=== PATIENT | male | born 1960 | race Caucasian/White ===

== ENCOUNTER 2016-08-09 14:02 | Emergency (ER) | payer OTHER ==
[2016-08-09 14:23] VITALS: TEMP 97.9
--- NOTE | 2016-08-09 15:12 | CT ---
EXAM DESCRIPTION: Head CT without contrast CLINICAL HISTORY: Altered mental status COMPARISON: None. TECHNIQUE: Noncontrast spiral CT of the brain. FINDINGS: No intracranial hemorrhage, infarction or mass lesion. Normal monroe-white matter differentiation Ventricles are normal in size and configuration No calvarial or skullbase fracture. No fluid in the paranasal sinuses or mastoid air cells IMPRESSION: Negative noncontrast head CT Electronically signed by: Duc Grant MD 08/09/2016 3:11 PM JORDAN WORKER
--- NOTE | 2016-08-09 15:13 | RAD ---
EXAM DESCRIPTION: Chest,1 View CLINICAL HISTORY: cardiac workup COMPARISON: 06/23/2013 TECHNIQUE: Single view chest FINDINGS: Heart size is normal. Lungs are clear. No acute osseous injury. IMPRESSION: No acute chest process. Electronically signed by: Duc Grant MD 08/09/2016 3:12 PM SCIENTIFIC DATABASE CURATOR
--- NOTE | 2016-08-09 15:40 | ED.PDOC ---
History of Present Illness - General Chief Complaint: Neuro Symptoms/Deficits Stated Complaint: altered mental status Time Seen by Provider: 08/09/16 14:13 Source: patient, RN notes reviewed, Vital Signs reviewed, EMS notes reviewed Exam Limitations: clinical condition - History of Present Illness Initial Comments: Patient is a 56 y/o male who was brought in by EMS with altered mental status. states that they were taking a nap. When he got up, he was shaking. At that time, he could not answer any of her questons, and he continued shaking. When EMS brought Patient in, he was able to tell me his name. He told me the date was . Several minutes later, after questions were asked and unanswered, Patient blurted out that it was actually the . Allergies/Adverse Reactions: Allergies NO KNOWN ALLERGY Allergy (Verified 08/09/16 14:23) Home Medications: Ambulatory Orders Abilify 03/30/15 Atorvastatin Calcium [Lipitor] 40 mg PO 03/30/15 Esomeprazole Magnesium [Nexium] 20 mg PO 03/30/15 Linagliptin-Metformin HCl [Jentadueto] 1 tab PO 03/30/15 Magnesium Chloride [Slow-Mag] 64 mg PO BID #30 tab 08/09/16 Potassium Chloride [Micro-K] 8 meq PO DAILY #15 cap 08/09/16 Review of Systems - Review of Systems Review of Systems: 08/09/16 17:38 Taken AFTER patient returned to baseline. Past Medical History (General) - Patient Medical History Hx Cardiac Disorders: Yes - SC Hx Hypertension: Yes Hx Diabetes: Yes Hx Gastroesophageal Reflux: Yes Hx MRSA: Yes - Arm 2009; Arm 2011 MRSA Source:: Wound Surgical History: tonsillectomy - Vaccination History Hx Tetanus, Diphtheria Vaccination: No Hx Influenza Vaccination: No Hx Pneumococcal Vaccination: No - Social History Hx Tobacco Use: Yes - quit one week ago Hx Alcohol Use: Yes Hx Substance Use: No Hx Substance Use Treatment: No Hx Depression: No - Activities of Daily Living Hospice Agency (if applicable):: None - Female History Patient is a Female of Child Bearing Age (10 -59 yrs old): No Patient : No Family Medical History - Family History Mother Family History: Unknown Physical Exam - Physical Exam General Appearance: Alert, Anxious, Unkempt Eye Exam: bilateral normal Ears, Nose, Throat: hearing grossly normal, normal ENT inspection Neck: normal inspection Respiratory: lungs clear, normal breath sounds, no respiratory distress, no accessory muscle use Cardiovascular/Chest: regular rate, rhythm, no edema, no gallop, no murmur Gastrointestinal/Abdominal: normal bowel sounds, non tender, soft, no organomegaly Extremity: no pedal edema, no calf tenderness, other - Extremities moving about as if Patient has RLS. Neurologic: abnormal cerebellar tests, abnormal gait, disoriented x 3 - Initially, oriented x 2 (name and date). After resolution of symptoms, oriented x 3. Skin Exam: normal color, warm/dry Progress - Progress Progress: 08/09/16 17:44 By the time Patient's CT results were back, Patient had returned to baseline. Therefore, a neuro consult was not made. Patient's neuro exam returned to normal after he returned to baseline. I discussed observation vs. discharge with Patient and his family, and the decision was to discharge Patient with close follow up since he had returned to baseline. I will order a carotid for Patient to get tomorrow, and he will call his PCPs office and get an appointment for tomorrow. 08/09/16 17:52 - Results/Orders Results/Orders: 08/09/16 08/09/16 08/09/16 14:07 14:45 15:00 Temperature 97.9 F Pulse Rate [ 104 H 72 66 pulse ox] Respiratory 20 20 20 Rate Blood Pressure 172/108 137/72 129/86 [Left Arm] O2 Sat by Pulse 95 99 95 Oximetry 08/09/16 08/09/16 15:47 17:24 Temperature Pulse Rate [ 74 62 pulse ox] Respiratory 20 20 Rate Blood Pressure 133/80 145/76 [Left Arm] O2 Sat by Pulse 94 L 99 Oximetry Laboratory Results WBC 9.7 K/mm3 (4.8-10.8) 08/09/16 13:53 RBC 5.13 M/mm3 (4.70-6.10) 08/09/16 13:53 Hgb 15.3 gm/dL (14.0-18.0) 08/09/16 13:53 Hct 44.1 % (42.0-52.0) 08/09/16 13:53 MCV 86.0 fl (80.0-94.0) 08/09/16 13:53 MCH 29.8 pg (27.0-31.0) 08/09/16 13:53 MCHC 34.6 g/dL (33.0-37.0) 08/09/16 13:53 RDW 13.4 % (11.5-14.5) 08/09/16 13:53 Plt Count 225 K/mm3 (130-400) 08/09/16 13:53 MPV 8.0 fl (7.40-10.4) 08/09/16 13:53 Absolute Neuts (auto) 4.60 K/uL (1.8-6.8) 08/09/16 13:53 Absolute Lymphs (auto) 4.10 K/uL (1.0-3.4) H 08/09/16 13:53 Absolute Monos (auto) 0.60 K/uL (0.2-0.8) 08/09/16 13:53 Absolute Eos (auto) 0.30 K/uL (0.0-0.4) 08/09/16 13:53 Absolute Basos (auto) 0.10 K/uL (0.0-0.1) 08/09/16 13:53 Neutrophils % 47.2 % (42.0-78.0) 08/09/16 13:53 Lymphocytes % 42.7 % (20.0-50.0) 08/09/16 13:53 Monocytes % 6.2 % (2.0-9.0) 08/09/16 13:53 Eosinophils % 3.3 % (1.0-5.0) 08/09/16 13:53 Basophils % 0.6 % (0.0-2.0) 08/09/16 13:53 PT 10.9 SECONDS (9.4-12.5) 08/09/16 13:53 INR 0.960 08/09/16 13:53 PTT (SP) 32.6 SECONDS (25.1-36.5) 08/09/16 13:53 Sodium 140 mmol/L (135-145) 08/09/16 13:53 Potassium 3.2 mmol/L (3.6-5.0) L 08/09/16 13:53 Chloride 101 mmol/L (101-111) 08/09/16 13:53 Carbon Dioxide 30 mmol/L (21-31) 08/09/16 13:53 Anion Gap 12.2 (12-18) 08/09/16 13:53 BUN 26 mg/dL (7-18) H 08/09/16 13:53 Creatinine 0.62 mg/dL (0.6-1.3) 08/09/16 13:53 BUN/Creatinine Ratio 41.9 (10-20) H 08/09/16 13:53 Random Glucose 183 mg/dL (70-105) H 08/09/16 13:53 Serum Osmolality 288.9 mOsm/L (275-295) 08/09/16 13:53 Calcium 9.4 mg/dL (8.4-10.2) 08/09/16 13:53 Magnesium 1.5 mg/dL (1.8-2.5) L 08/09/16 13:53 Creatine Kinase 45 IU/L (38-174) 08/09/16 13:53 CK-MB (CK-2) 0.7 ng/mL (0.0-4.4) 08/09/16 13:53 CK-MB (CK-2) % Not Reportable 08/09/16 13:53 Troponin I < 0.02 ng/mL (0.01-0.05) 08/09/16 13:53 Urine Color Yellow (Yellow) 08/09/16 15:23 Urine Appearance Clear (Clear) 08/09/16 15:23 Urine pH 6.5 (4.5-7.8) 08/09/16 15:23 Ur Specific [place] 1.015 (1.005-1.030) 08/09/16 15:23 Urine Protein Negative mg/dL 08/09/16 15:23 Urine Glucose (UA) 250 mg/dL (Negative) H 08/09/16 15:23 Urine Ketones Negative mg/dL (NEGATIVE) 08/09/16 15:23 Urine Blood Trace-intact (Negative) H 08/09/16 15:23 Urine Nitrite Negative 08/09/16 15:23 Urine Bilirubin Negative (NEGATIVE) 08/09/16 15:23 Urine Urobilinogen 0.2 mg/dL (0.2-1.0) 08/09/16 15:23 Ur Leukocyte Esterase Negative (Negative) 08/09/16 15:23 Urine RBC 0-1 /hpf 08/09/16 15:23 Urine WBC 0-1 /hpf 08/09/16 15:23 Ur Epithelial Cells 0-1 /hpf 08/09/16 15:23 Urine Bacteria 0 08/09/16 15:23 Urine Mucus Moderate 08/09/16 15:23 Urine Opiates Screen Negative ng/mL (2000) 08/09/16 15:23 Urine Barbiturates Negative ng/mL (200) 08/09/16 15:23 Ur Phencyclidine Scrn Negative ng/mL (25) 08/09/16 15:23 U Amphetamin/Meth Scrn Negative ng/mL (1000) 08/09/16 15:23 U Benzodiazepines Scrn Negative ng/mL (200) 08/09/16 15:23 U Cocaine Metab Screen Negative ng/mL (300) 08/09/16 15:23 U Cannabinoids Screen Positive ng/mL (50) H 08/09/16 15:23 - EKG/XRAY/CT XRAY: chest Xray Comments: No acute process CT: Head: No acute process CT Ordered: Yes CT Interpretation Call Back: No - Report sent Departure - Departure Clinical Impression: Transient ischaemic attack (TIA), and cerebral infarction without residual deficits, Hyperglycemia, Hypokalemia, Hypomagnesemia Time of Disposition: 17:54 Disposition: Discharge to Home or Self Care Condition: Good Departure Forms: ED Discharge - Pt. Copy, Patient Portal Self Enrollment Instructions: DI for Transient Ischemic Attack, Transient Ischemic Attack, Hypokalemia, DI for Hypokalemia Diet: diabetic diet Referrals: [Primary Care Provider] - 08/10/16 Prescriptions: Potassium Chloride [Micro-K] 8 meq PO DAILY #15 cap Magnesium Chloride [Slow-Mag] 64 mg PO BID #30 tab Home Medications: Ambulatory Orders Abilify 03/30/15 Atorvastatin Calcium [Lipitor] 40 mg PO 03/30/15 Esomeprazole Magnesium [Nexium] 20 mg PO 03/30/15 Linagliptin-Metformin HCl [Jentadueto] 1 tab PO 03/30/15 Magnesium Chloride [Slow-Mag] 64 mg PO BID #30 tab 08/09/16 Potassium Chloride [Micro-K] 8 meq PO DAILY #15 cap 08/09/16 Additional Instructions: Start aspirin 325 mg daily. Follow up with PCP TOMORROW. Order for carotid doppler for tomorrow. Follow up in ED for any return of symptoms.
[2016-08-09] MEDS ORDERED: ASPIRIN TABLET 325 MG TAB PO ONE (17:37)
[2016-08-09 18:26] VITALS: BP 139/68; O2SAT 96
== END 2016-08-09 18:10 | disposition home or self-care (01) ==
LOC: ER 14:02
DX: G45.9 Transient cerebral ischemic attack, unspecified (principal); E11.65 Type 2 diabetes mellitus with hyperglycemia; E83.42 Hypomagnesemia; I25.2 Old myocardial infarction; I10 Essential (primary) hypertension; K21.9 Gastro-esophageal reflux disease without esophagitis; Z86.14 Personal history of Methicillin resistant Staphylococcus aureus infection; Z87.891 Personal history of nicotine dependence; Z79.899 Other long term (current) drug therapy

== ENCOUNTER → 2016-08-10 | Outpatient (CLI) | payer OTHER ==
--- NOTE | 2016-08-11 08:59 | US ---
EXAM DESCRIPTION: Carotid Duplex CLINICAL HISTORY: 56 years, Male, TIA COMPARISON: [None.] FINDINGS: Peak systolic velocity distal right common carotid artery 89 centimeters/second. Peak systolic velocity right internal carotid artery 66 centimeters/second. Right ICA to CCA ratio 0.7. Antegrade flow in the right vertebral artery. Peak systolic velocity right external carotid artery 118 centimeters/second. Grayscale images show a small amount of noncalcified plaque in the right carotid bifurcation. Peak systolic velocity left common carotid artery 83 centimeters/second. Peak systolic velocity left internal carotid artery 74 centimeters/second. Left ICA to CCA ratio 0.9. [Antegrade] flow in the left vertebral artery. Peak systolic velocity left external carotid artery 108 centimeters/second. Grayscale images show a small amount of noncalcified plaque in the left carotid bifurcation. IMPRESSION: Mild (less than 50%) bilateral carotid artery stenosis. Electronically signed by: Zaid Freedman MD 08/11/2016 8:58 AM SALES REPRESENTATIVE EDUCATION COURSES
== END | disposition home or self-care (01) ==
LOC: US 12:59
PROVIDERS: ATTEND Nurse Practitioner Family
DX: I65.23 Occlusion and stenosis of bilateral carotid arteries (principal)

== ENCOUNTER → 2016-08-26 | Outpatient (CLI) | payer OTHER | END | disposition home or self-care (01) | LOC: YCFC.O 15:37 | PROVIDERS: ATTEND Nurse Practitioner Family | DX: I10 Essential (primary) hypertension (principal) ==

== ENCOUNTER 2016-10-03 16:29 | Emergency (ER) | payer OTHER ==
[2016-10-03 16:47] VITALS: TEMP 98
--- NOTE | 2016-10-03 17:07 | ED.PDOC ---
History of Present Illness - General Chief Complaint: Neuro Symptoms/Deficits Stated Complaint: had dizziness around 1430 btter now Time Seen by Provider: 10/03/16 16:30 Source: patient, RN notes reviewed, Vital Signs reviewed, family, EMS Exam Limitations: no limitations - History of Present Illness Initial Comments: Patient reports that about 14:30 today he got up from sitting outside and got dizzy and felt like he was going to pass out as he walked into the house. He sat on the floor and then felt better. Symptoms only lasted a few minutes. Now is symptoms free. was concerned because he was recently diagnosed with a TIA. He also started new diabetes medication and his BS is running 100-150. Today all he has eaten in 2 handfuls of sunflower seeds and a diet Dr. Banks. Timing/Duration: momentarily Severity: mild Improving Factors: rest Worsening Factors: movement Associated Symptoms: denies symptoms Allergies/Adverse Reactions: Allergies NO KNOWN ALLERGY Allergy (Verified 10/03/16 16:42) Home Medications: Ambulatory Orders Abilify 03/30/15 Atorvastatin Calcium [Lipitor] 40 mg PO 03/30/15 Esomeprazole Magnesium [Nexium] 20 mg PO 03/30/15 Linagliptin-Metformin HCl [Jentadueto] 1 tab PO 03/30/15 Magnesium Chloride [Slow-Mag] 64 mg PO BID #30 tab 08/09/16 Potassium Chloride [Micro-K] 8 meq PO DAILY #15 cap 08/09/16 Review of Systems - Review of Systems Constitutional: States: no symptoms reported EENTM: States: no symptoms reported Respiratory: States: no symptoms reported Cardiology: States: no symptoms reported Gastrointestinal/Abdominal: States: no symptoms reported Musculoskeletal: States: no symptoms reported Neurological: States: see HPI Past Medical History (General) - Patient Medical History Hx Seizures: No Hx Stroke: Yes Hx Dementia: No Hx Asthma: No Hx of COPD: No Hx Cardiac Disorders: No Hx Congestive Heart Failure: No Hx Pacemaker: No Hx Hypertension: Yes Hx Thyroid Disease: No Hx Diabetes: Yes Hx Gastroesophageal Reflux: No Hx Renal Disease: No Hx Cancer: No Hx of HIV: No Hx Hepatitis C: No Hx MRSA: No MRSA Source:: Wound - Vaccination History Hx Tetanus, Diphtheria Vaccination: No Hx Influenza Vaccination: No Hx Pneumococcal Vaccination: No Immunizations Up to Date: No - Social History Hx Tobacco Use: Yes - quit one week ago Hx Chewing Tobacco Use: No Hx Alcohol Use: Yes Hx Substance Use: No Hx Substance Use Treatment: No Hx Depression: No Feels Threatened In Home Enviroment: No Feels Threatened In a Relationship: No Hx Physical Abuse: No Hx Emotional Abuse: No Hx Suspected Abuse: No - Female History Patient is a Female of Child Bearing Age (10 -59 yrs old): No Patient : No Family Medical History - Family History Mother Family History: Unknown Living Status: Physical Exam - Physical Exam General Appearance: Alert, Comfortable, No apparent distress, Unkempt, Well Developed, Well Hydrated, Well Nourished Eye Exam: bilateral normal Ears, Nose, Throat: hearing grossly normal, normal ENT inspection, normal pharynx Neck: non-tender, full range of motion, supple, normal inspection Respiratory: lungs clear, normal breath sounds, no respiratory distress, no accessory muscle use Cardiovascular/Chest: regular rate, rhythm, no edema, no gallop, no JVD, no murmur Gastrointestinal/Abdominal: non tender, soft Extremity: normal range of motion, non-tender, normal inspection Neurologic: exercise science internship II-XII nml as tested, no motor/sensory deficits, alert, normal mood/affect, oriented x 3 Skin Exam: normal color, warm/dry Comments: Vital Signs - 24 hr 10/03/16 16:42 Temperature 98 F Pulse Rate [ 78 Left Apical] Respiratory 20 Rate Blood Pressure 145/87 [Left Arm] O2 Sat by Pulse 100 Oximetry Progress - Progress Progress: 10/03/16 17:09 Patient with completely normal neuro exam. Suspect his symptoms were due to his BS dropping too low. EMS reported BS of 108. Will d/c home Advised to eat more regularly, especially now that he is on medication that is keeping his blood sugar better controlled. Departure - Departure Clinical Impression: Dizziness, nonspecific Time of Disposition: 17:11 Disposition: Discharge to Home or Self Care Condition: Good Departure Forms: ED Discharge - Pt. Copy, Patient Portal Self Enrollment Instructions: DI for Dizziness-Nonvertigo Diet: diabetic diet Activity: increase activity as tolerated Referrals: Gina Lazaro FNP [Primary Care Provider] - 1-2 Weeks Home Medications: Ambulatory Orders Abilify 03/30/15 Atorvastatin Calcium [Lipitor] 40 mg PO 03/30/15 Esomeprazole Magnesium [Nexium] 20 mg PO 03/30/15 Linagliptin-Metformin HCl [Jentadueto] 1 tab PO 03/30/15 Magnesium Chloride [Slow-Mag] 64 mg PO BID #30 tab 08/09/16 Potassium Chloride [Micro-K] 8 meq PO DAILY #15 cap 08/09/16
[2016-10-03 17:22] VITALS: BP 148/87; O2SAT 99
== END 2016-10-03 17:21 | disposition home or self-care (01) ==
LOC: ER 16:29
DX: R42 Dizziness and giddiness (principal); I10 Essential (primary) hypertension; E11.9 Type 2 diabetes mellitus without complications; Z86.73 Personal history of transient ischemic attack (TIA), and cerebral infarction without residual deficits; Z87.891 Personal history of nicotine dependence; Z79.899 Other long term (current) drug therapy

== ENCOUNTER 2016-10-10 20:04 | Emergency (ER) | payer OTHER ==
[2016-10-10] MEDS ORDERED: CHLORHEXIDINE GLUCONATE 4 % 15 ML UD TOP ONE (20:11)
[2016-10-10 20:24] VITALS: TEMP 98.7
--- NOTE | 2016-10-10 20:32 | ED.PDOC ---
History of Present Illness - General Chief Complaint: Laceration Stated Complaint: left index finger laceration Time Seen by Provider: 10/10/16 20:29 Source: patient, RN notes reviewed, Vital Signs reviewed Exam Limitations: no limitations - History of Present Illness Initial Comments: Margy is a 56 y/o male who was trying to put a hole in his belt and the knife slipped and cut his left index finger. This happened about 30 minutes ago. He is experiencing mild pain. The knife was a fairly clean knife-a pocket knife. Timing/Duration: just prior to arrival Severity: mild Location: extremities - Distal left index finger Improving Factors: nothing Worsening Factors: nothing Associated Symptoms: denies symptoms Allergies/Adverse Reactions: Allergies NO KNOWN ALLERGY Allergy (Verified 10/10/16 20:24) Home Medications: Ambulatory Orders Abilify 03/30/15 Atorvastatin Calcium [Lipitor] 40 mg PO 03/30/15 Esomeprazole Magnesium [Nexium] 20 mg PO 03/30/15 Linagliptin-Metformin HCl [Jentadueto] 1 tab PO 03/30/15 Magnesium Chloride [Slow-Mag] 64 mg PO BID #30 tab 08/09/16 Potassium Chloride [Micro-K] 8 meq PO DAILY #15 cap 08/09/16 Review of Systems - Review of Systems Constitutional: States: no symptoms reported EENTM: States: no symptoms reported Respiratory: States: no symptoms reported Cardiology: States: no symptoms reported Gastrointestinal/Abdominal: States: no symptoms reported Genitourinary: States: no symptoms reported Musculoskeletal: States: no symptoms reported Skin: States: other - laceration Neurological: States: no symptoms reported Endocrine: States: no symptoms reported Hematologic/Lymphatic: States: no symptoms reported All other Systems: Reviewed and Negative Past Medical History (General) - Patient Medical History Hx Seizures: No Hx Stroke: Yes Hx Dementia: No Hx Asthma: No Hx of COPD: No Hx Cardiac Disorders: No Hx Congestive Heart Failure: No Hx Pacemaker: No Hx Hypertension: Yes Hx Thyroid Disease: No Hx Diabetes: Yes Hx Gastroesophageal Reflux: No Hx Renal Disease: No Hx Cancer: No Hx of HIV: No Hx Hepatitis C: No Hx MRSA: No MRSA Source:: Wound Surgical History: tonsillectomy - Vaccination History Hx Tetanus, Diphtheria Vaccination: No Hx Influenza Vaccination: No Hx Pneumococcal Vaccination: No Immunizations Up to Date: No - Social History Hx Tobacco Use: Yes - quit one week ago Hx Chewing Tobacco Use: No Hx Alcohol Use: Yes Hx Substance Use: No Hx Substance Use Treatment: No Hx Depression: No Feels Threatened In Home Enviroment: No Feels Threatened In a Relationship: No Hx Physical Abuse: No Hx Emotional Abuse: No Hx Suspected Abuse: No - Female History Patient : No Family Medical History - Family History Mother Family History: Unknown Living Status: Physical Exam - Physical Exam General Appearance: Alert, Comfortable, No apparent distress Eyes, Ears, Nose, Throat Exam: normal ENT inspection Respiratory: no respiratory distress Extremity: normal range of motion Neurologic: alert, normal mood/affect, oriented x 3 Skin Exam: other - Superficial laceration 1.2 cm at distal left index finger. U -shaped. Did catch distal edge of nail. Skin Problem Location: upper extremities Skin Character: other - laceration Procedures - Laceration/Wound Repair Left Finger Wound Length (cm): 1.2 Wound's Depth, Shape: superficial Wound Explored: no foreign body removed Irrigated w/ Saline (cc's): 50 - soaked in hibiclens with saline for 20 minutes Betadine Prep?: No - Hibiclens Wound Repaired With: dermabond Departure - Departure Clinical Impression: Laceration, Immunization, tetanus-diphtheria ICD-10 Supporting Text: 1.2 cm distal left index finger Time of Disposition: 21:07 Disposition: Discharge to Home or Self Care Condition: Fair Departure Forms: ED Discharge - Pt. Copy, Patient Portal Self Enrollment Instructions: DI for Minor Laceration, DI for Laceration Repair With Dermabond Diet: resume usual diet Home Medications: Ambulatory Orders Abilify 03/30/15 Atorvastatin Calcium [Lipitor] 40 mg PO 03/30/15 Esomeprazole Magnesium [Nexium] 20 mg PO 03/30/15 Linagliptin-Metformin HCl [Jentadueto] 1 tab PO 03/30/15 Magnesium Chloride [Slow-Mag] 64 mg PO BID #30 tab 08/09/16 Potassium Chloride [Micro-K] 8 meq PO DAILY #15 cap 08/09/16 Additional Instructions: Follow up for any severe pain or redness to finger.
[2016-10-10] MEDS ORDERED: TETANUS,DIPHTHERIA,PERTUSSIS 1 EA SYG IM ONE (21:08)
[2016-10-10 21:36] VITALS: BP 153/102; O2SAT 97
== END 2016-10-10 21:37 | disposition home or self-care (01) ==
LOC: ER 20:04
DX: S61.211A Laceration without foreign body of left index finger without damage to nail, initial encounter (principal); E11.9 Type 2 diabetes mellitus without complications; I10 Essential (primary) hypertension; Z86.73 Personal history of transient ischemic attack (TIA), and cerebral infarction without residual deficits; Z79.899 Other long term (current) drug therapy; Z23 Encounter for immunization; Z87.891 Personal history of nicotine dependence; W26.0XXA Contact with knife, initial encounter

== ENCOUNTER → 2016-11-29 | Outpatient (CLI) | payer OTHER | END | disposition home or self-care (01) | LOC: YCFC.O 11:08 | PROVIDERS: ATTEND Nurse Practitioner Family | DX: E78.2 Mixed hyperlipidemia (principal); E11.65 Type 2 diabetes mellitus with hyperglycemia; I10 Essential (primary) hypertension ==

== ENCOUNTER 2017-03-28 15:37 | Emergency (ER) | payer OTHER ==
[2017-03-28 16:13] VITALS: TEMP 98.6
--- NOTE | 2017-03-28 16:31 | CT ---
PROCEDURE: Head HISTORY: stroke like symptoms Indication: Same as above Comparison: 08/09/2016 Technique: CT of the head was done without intravenous contrast was done in the orthogonal planes. This exam was performed according to our departmental dose-optimization program, which includes automated exposure control, adjustment of the mA and/or KV according to the patient's size and/or use of iterative reconstruction technique. FINDINGS: There is no intracranial hemorrhage, midline shift mass effect or acute focal infarct. If clinical concern exists regarding an acute ischemic/vascular pathology being responsible for patient's symptomatology, an MRI of the brain is more sensitive than the current study, in ruling out such a possibility. There is good monroe/white matter differentiation. The ventricular system is normal. The mastoid air cells are unremarkable . The paranasal sinuses are unremarkable . There is no visualization of acute fractures involving the calvarium or the skull base. IMPRESSION: There is no acute intracranial abnormality. Electronically signed by: Andre Ahmadi MD 03/28/2017 4:30 PM CDT Workstation: [id number]
--- NOTE | 2017-03-28 16:31 | RAD ---
EXAM DESCRIPTION: Chest,1 View CLINICAL HISTORY: pain COMPARISON: August 01, 2016 IMPRESSION: Single AP portable upright view of the chest shows cardiac silhouette and pulmonary vasculature to be within normal limits. Lungs are normally aerated and clear. No obvious pleural effusion or pneumothorax is seen. Electronically signed by: Jamshid Juarez MD 03/28/2017 4:30 PM CDT
--- NOTE | 2017-03-28 17:11 | ED.PDOC ---
History of Present Illness - General Chief Complaint: Neuro Symptoms/Deficits Stated Complaint: stroke like symptoms Time Seen by Provider: 03/28/17 15:54 Source: patient Exam Limitations: no limitations - History of Present Illness Initial Comments: Nick Calderon 56 y/o female stated that woke up from sleep at about 1500 H this afternoon got up and had jerky movements all over and speech was slurred ,confused and restless,EMS was called and blood sugar checked was 108mg/ dl on finger stick.No nausea vomiting no fever.On arrival was awake ,Quiet just looking all over no agitation.Medical records reviewed showed he had same symptoms in the past previou head ct no infarct/hemorrhage noted and bilateral carotid doppler done has <50% mild stenosis bilaterally noted done 2016.He is dm2,BD,HTN. Timing/Duration: 1-3 hours Severity: moderate Improving Factors: nothing Worsening Factors: nothing Associated Symptoms: denies symptoms Allergies/Adverse Reactions: Allergies NO KNOWN ALLERGY Allergy (Verified 03/28/17 16:13) Home Medications: Ambulatory Orders Abilify 03/30/15 Atorvastatin Calcium [Lipitor] 40 mg PO 03/30/15 Esomeprazole Magnesium [Nexium] 20 mg PO 03/30/15 Linagliptin-Metformin HCl [Jentadueto] 1 tab PO 03/30/15 Magnesium Chloride [Slow-Mag] 64 mg PO BID #30 tab 08/09/16 Potassium Chloride [Micro-K] 8 meq PO DAILY #15 cap 08/09/16 Review of Systems - Review of Systems Constitutional: States: no symptoms reported EENTM: States: no symptoms reported Respiratory: States: no symptoms reported Cardiology: States: no symptoms reported Gastrointestinal/Abdominal: States: no symptoms reported Genitourinary: States: no symptoms reported Musculoskeletal: States: no symptoms reported Neurological: States: see HPI Past Medical History (General) - Patient Medical History Hx Seizures: No Hx Stroke: No - TIA (?) Hx Dementia: No Hx Asthma: No Hx of COPD: No Hx Cardiac Disorders: No Hx Congestive Heart Failure: No Hx Pacemaker: No Hx Hypertension: Yes Hx Thyroid Disease: No Hx Diabetes: Yes Hx Gastroesophageal Reflux: No Hx Renal Disease: No Hx Cancer: No Hx of HIV: No Hx Hepatitis C: No Hx MRSA: No MRSA Source:: Wound Surgical History: tonsillectomy, other - circumcision - Vaccination History Hx Tetanus, Diphtheria Vaccination: No Hx Influenza Vaccination: No Hx Pneumococcal Vaccination: No - Social History Hx Tobacco Use: Yes Hx Chewing Tobacco Use: No Hx Alcohol Use: Yes Hx Substance Use: No Hx Substance Use Treatment: No Hx Depression: No Hx Physical Abuse: No Hx Emotional Abuse: No Hx Suspected Abuse: No - Activities of Daily Living Patient Lives Alone: No - family;medically disabled Hospice Agency (if applicable):: None Grooming Ability: Independent Eating (Feeding) Ability: Independent Toileting Ability: Independent - Female History Patient : No Family Medical History - Family History Mother Family History: Unknown Living Status: Hx Family Diabetes: Yes - mom-brother Hx Family Cancer: Yes - dad-lung Hx Family;Other: SEIZURES-brother Physical Exam - Physical Exam General Appearance: Alert, Comfortable, No apparent distress Eye Exam: bilateral normal Ears, Nose, Throat: hearing grossly normal, normal ENT inspection, normal pharynx Neck: non-tender, full range of motion, supple Respiratory: chest non-tender, lungs clear, normal breath sounds Cardiovascular/Chest: normal peripheral pulses, regular rate, rhythm, no murmur Peripheral Pulses: radial,right: 2+, radial,left: 2+ Gastrointestinal/Abdominal: normal bowel sounds, non tender, soft, no organomegaly Extremity: normal range of motion, non-tender, normal inspection, no pedal edema , no calf tenderness Neurologic: home care giver II-XII nml as tested, no motor/sensory deficits, alert, normal mood/affect, oriented x 3, other - pronator drift negative;speech fluent Skin Exam: normal color, warm/dry Progress - Progress Progress: 03/28/17 17:16 Vital Signs - 8 hr 03/28/17 16:03 Temperature 98.6 F Pulse Rate [ 102 H pulse ox] Respiratory 20 Rate Blood Pressure 157/56 [Right Arm] O2 Sat by Pulse 97 Oximetry - EKG/XRAY/CT EKG: Sinus, nonspecific ST T wave Chg Comments: heart rate-80 XRAY: chest - no acute abnormalities CT Ordered: Yes - head-no acute intracranial abnormalities Departure - Departure Clinical Impression: Hypomagnesemia Altered mental state Qualifiers: Altered mental status type: unspecified Qualified Code(s): R41.82 - Altered mental status, unspecified Diabetes Qualifiers: Diabetes mellitus type: type 2 Diabetes mellitus complication status: without complication Diabetes mellitus custodial insulin use: without heavy equipment plumbing supervisor use Qualified Code(s): E11.9 - Type 2 diabetes mellitus without complications Time of Disposition: 19:15 Disposition: Discharge to Home or Self Care Condition: Fair Departure Forms: ED Discharge - Pt. Copy, Patient Portal Self Enrollment Referrals: Gina Lazaro, BLADE GRADER OPERATOR [Primary Care Provider] - 1-2 Weeks Home Medications: Ambulatory Orders Abilify 03/30/15 Atorvastatin Calcium [Lipitor] 40 mg PO 03/30/15 Esomeprazole Magnesium [Nexium] 20 mg PO 03/30/15 Linagliptin-Metformin HCl [Jentadueto] 1 tab PO 03/30/15 Magnesium Chloride [Slow-Mag] 64 mg PO BID #30 tab 08/09/16 Potassium Chloride [Micro-K] 8 meq PO DAILY #15 cap 08/09/16 Additional Instructions: NEED TO TAKE MAGNESIUM OXIDE 400 mg daily(over the counter ) may get it at [facility];RETURN TO EMERGENCY ROOM NEEDED ;FOLLOW UP WITH PRIMARY MD 03/29 call for appointment for referral to NEUROLOGIST.Continue with all home medications
[2017-03-28] MEDS ORDERED: MAGNESIUM SULFATE PREMIX 2GM 2 GM in PREMIX BAG 1 BAG IVPB ONE (17:38)
[2017-03-28] MEDS ORDERED: MAGNESIUM SULFATE PREMIX 2GM 50 ML IVPB ONE (17:41)
[2017-03-28 19:19] VITALS: O2SAT 96
[2017-03-28 19:39] VITALS: BP 151/80
== END 2017-03-28 19:39 | disposition home or self-care (01) ==
LOC: ER 15:37
DX: E83.42 Hypomagnesemia (principal); R41.82 Altered mental status, unspecified; E11.9 Type 2 diabetes mellitus without complications; I10 Essential (primary) hypertension; Z79.899 Other long term (current) drug therapy
CPT/HCPCS: 36415; 70450; 71010; 80048; 80076; 80307; 80320; 81001; 82550; 82553; 84484; 85025; 85610; 85730; 93005; J3475

== ENCOUNTER 2017-05-27 14:15 | Emergency (ER) | payer OTHER ==
--- NOTE | 2017-05-27 14:22 | ED.PDOC ---
History of Present Illness - General Chief Complaint: Neuro Symptoms/Deficits Stated Complaint: altered mental status Time Seen by Provider: 05/27/17 14:17 Source: EMS Exam Limitations: clinical condition Additional Information: Per EMS Pt had voided on himself. He was aphasic but following commands for the most part. No distress. Per EMS family has been dealing with this for the past few months. Initially patient unable to speak but he was able to follow commands. He had no lateralizing symptoms at that time. Upon reassessment he resolved completely and was requesting to go home. He has a Neurology appointment in July. - History of Present Illness Timing/Duration: 1-3 hours - prior to arrival Improving Factors: rest Associated Symptoms: other - loss of bladder control Allergies/Adverse Reactions: Allergies NO KNOWN ALLERGY Allergy (Verified 03/28/17 16:13) Home Medications: Ambulatory Orders Aripiprazole [Abilify] 10 mg PO DAILY 03/30/15 Atorvastatin Calcium [Lipitor] 40 mg PO BEDTIME 03/30/15 Esomeprazole Magnesium [Nexium] 20 mg PO DAILY 03/30/15 Aspirin (Buffered) 325 mg [Bufferin 325 mg] 1 ea PO DAILY 05/27/17 Linagliptin [Tradjenta] 5 mg PO DAILY 05/27/17 Lisinopril & Hydrochlorothiazi [Zestoretic 20-25 mg] 1 tab PO DAILY 05/27/17 Magnesium Chloride [Slow-Mag] 64 mg PO DAILY 05/27/17 Metformin HCl [Metformin HCl ER] 1,000 mg PO BID 05/27/17 Review of Systems - Review of Systems Constitutional: States: no symptoms reported EENTM: States: no symptoms reported Respiratory: States: no symptoms reported Cardiology: States: no symptoms reported Gastrointestinal/Abdominal: States: no symptoms reported Genitourinary: States: no symptoms reported Musculoskeletal: States: no symptoms reported Skin: States: no symptoms reported Neurological: States: see HPI, seizure - like activity Endocrine: States: see HPI - h/o diabetes Hematologic/Lymphatic: States: no symptoms reported Past Medical History (General) - Patient Medical History Hx Seizures: No Hx Stroke: No - TIA (?) Hx Dementia: No Hx Asthma: No Hx of COPD: No Hx Cardiac Disorders: No Hx Congestive Heart Failure: No Hx Pacemaker: No Hx Hypertension: Yes Hx Thyroid Disease: No Hx Diabetes: Yes Hx Gastroesophageal Reflux: No Hx Renal Disease: No Hx Cancer: No Hx of HIV: No Hx Hepatitis C: No Hx MRSA: No MRSA Source:: Wound - Vaccination History Hx Tetanus, Diphtheria Vaccination: No Hx Influenza Vaccination: No Hx Pneumococcal Vaccination: No - Social History Hx Tobacco Use: Yes Hx Chewing Tobacco Use: No Hx Alcohol Use: Yes Hx Substance Use: No Hx Substance Use Treatment: No Hx Depression: No Hx Physical Abuse: No Hx Emotional Abuse: No Hx Suspected Abuse: No - Female History Patient : No Family Medical History - Family History Mother Family History: Unknown Living Status: Hx Family Diabetes: Yes - mom-brother Hx Family Cancer: Yes - dad-lung Hx Family;Other: SEIZURES-brother Physical Exam - Physical Exam General Appearance: No apparent distress, Unkempt, Other - initially aphasic. Later on, symptoms resolved. Eye Exam: bilateral normal ENT Exam: normal ENT inspection, pharynx normal Neck: non-tender, full range of motion, supple, normal inspection Respiratory: no respiratory distress, no accessory muscle use Cardiovascular/Chest: regular rate, rhythm Gastrointestinal/Abdominal: non tender, soft Extremities Exam: non-tender, normal range of motion Mental Status: other - aphasic initially, then after about 10 to 15 minutes Pt was alert and oriented with normal speech Motor/Sensory: no motor deficit, no sensory deficit, no pronator drift Skin Exam: normal color Progress - Progress Progress: 05/27/17 15:10 Symptoms resolved spontaneously. Similar to previous episode in March 2017. Pt stable. Suspect Pt came in post-ictal state which has resolved. He has an appointment with Neurology in July. - Results/Orders Results/Orders: 05/27/17 14:19 URINE DRUG SCREEN, 7 ASSAY Stat PROLACTIN Stat 05/27/17 14:21 IV Care:Saline Lock per Protoc QSHIFT 05/27/17 14:28 Sodium Chloride 0.9% 1000ML [Ns 1000 ml] 1,000 ml IVS ONCE 05/27/17 14:34 CMP [COMPLETE METABOLIC PROFILE] Stat TSH [THYROID STIMULATING HORMONE] Stat Laboratory Results - last 24 hr 05/27/17 05/27/17 05/27/17 14:34 14:34 14:50 WBC 8.1 RBC 4.91 Hgb 14.7 Hct 41.4 L MCV 84.2 MCH 30.0 MCHC 35.6 RDW 12.7 Plt Count 238 MPV 7.7 Absolute Neuts (auto) 4.80 Absolute Lymphs (auto) 2.50 Absolute Monos (auto) 0.60 Absolute Eos (auto) 0.20 Absolute Basos (auto) 0.10 Neutrophils % 58.7 Lymphocytes % 31.4 Monocytes % 7.2 Eosinophils % 2.0 Basophils % 0.7 Sodium 138 Potassium 3.9 Chloride 99 L Carbon Dioxide 30 Anion Gap 12.9 BUN 14 Creatinine 0.75 BUN/Creatinine Ratio 18.7 Random Glucose 250 H Serum Osmolality 284.6 Calcium 9.4 Total Bilirubin 0.3 AST 17 ALT 20 Alkaline Phosphatase 96 Serum Total Protein 7.1 Albumin 3.8 Globulin 3.3 Albumin/Globulin Ratio 1.2 Urine Color Yellow Urine Appearance Cloudy Urine pH 7.5 Ur Specific [place] 1.020 Urine Protein Negative Urine Glucose (UA) 500 H Urine Ketones Negative Urine Blood Negative Urine Nitrite Negative Urine Bilirubin Negative Urine Urobilinogen 0.2 Ur Leukocyte Esterase Negative Urine RBC 0 Urine WBC 0 Ur Epithelial Cells 10-20 Amorphous Sediment 2+ Urine Bacteria 0 - EKG/XRAY/CT CT: Head Noncontrast - no acute changes. No bleed. No mass effect. Departure - Departure Clinical Impression: Seizure-like activity Mental status alteration Qualifiers: Altered mental status type: transient alteration of awareness Qualified Code(s) : R40.4 - Transient alteration of awareness Uncontrolled diabetes mellitus Qualifiers: Diabetes mellitus type: type 2 Diabetes mellitus complication status: with hyperglycemia Diabetes mellitus outpatient clerk insulin use: without outpatient clerk use Qualified Code(s): E11.65 - Type 2 diabetes mellitus with hyperglycemia Time of Disposition: 15:26 Disposition: Discharge to Home or Self Care Condition: Fair Departure Forms: ED Discharge - Pt. Copy, Patient Portal Self Enrollment Referrals: Gina Lazaro NP [Primary Care Provider] - 1-2 Weeks Home Medications: Ambulatory Orders Aripiprazole [Abilify] 10 mg PO DAILY 03/30/15 Atorvastatin Calcium [Lipitor] 40 mg PO BEDTIME 03/30/15 Esomeprazole Magnesium [Nexium] 20 mg PO DAILY 03/30/15 Aspirin (Buffered) 325 mg [Bufferin 325 mg] 1 ea PO DAILY 05/27/17 Linagliptin [Tradjenta] 5 mg PO DAILY 05/27/17 Lisinopril & Hydrochlorothiazi [Zestoretic 20-25 mg] 1 tab PO DAILY 05/27/17 Magnesium Chloride [Slow-Mag] 64 mg PO DAILY 05/27/17 Metformin HCl [Metformin HCl ER] 1,000 mg PO BID 05/27/17 Additional Instructions: I suspect you had seizure like activity. Keep your appointment with Neurology as scheduled. Return to ER if altered mental status recurs. Keep up to date with your Diabetes management and surveillance (ex- Hemoglobin A1C every 3 to 4 months).
[2017-05-27 14:27] VITALS: TEMP 98.7
[2017-05-27] MEDS ORDERED: SODIUM CHLORIDE 0.9% 1000ML 1,000 ML IVS ONE (14:28)
--- NOTE | 2017-05-27 14:48 | CT ---
Procedure: CT HEAD WITHOUT IV CONTRAST Exam Date: 05/27/2017 2:17 PM [facility] Ordering Provider: Sam Reddy Clinical Indication: altered mental status Comparison: March 28, 2017 Technique: CT images of the head were obtained without contrast administration. Coronal and sagittal reformats were obtained. This exam was performed according to our departmental dose-optimization program which includes automated exposure control, adjustment of the mA and/or kV according to patient size and/or use of iterative reconstruction technique. Findings: There is no acute cortical infarction, hemorrhage, midline shift, mass effect, or hydrocephalus. The calvaria and skull base are unremarkable. Paranasal sinuses and mastoid air cells are well aerated. Impression: 1. No acute intracranial abnormality. Electronically signed by: Nataly Gregg MD 05/27/2017 2:47 PM [facility]
[2017-05-27 15:29] VITALS: BP 148/86; O2SAT 97
== END 2017-05-27 15:37 | disposition home or self-care (01) ==
LOC: ER 14:15
DX: R56.9 Unspecified convulsions (principal); R40.4 Transient alteration of awareness; E11.65 Type 2 diabetes mellitus with hyperglycemia; Z87.891 Personal history of nicotine dependence; Z79.82 Long term (current) use of aspirin

== ENCOUNTER 2017-09-22 14:31 | Emergency (ER) | payer OTHER ==
--- NOTE | 2017-09-22 14:44 | ED.PDOC ---
History of Present Illness - General Chief Complaint: Neuro Symptoms/Deficits Stated Complaint: altered mental status Time Seen by Provider: 09/22/17 14:37 Source: family, EMS Exam Limitations: no limitations - History of Present Illness Initial Comments: Suleman Calderon 57 y/o male brought by ems after his noted that he was just walking around at and with blank stare and also noted that he was also stumbling . noticed it after she woke up from sleep and patient was standing at their door.He had been here with same episode in the past and this is his 5th-6th visit here in ER. Had FSBS 160 done by ems.Has neurologist appointment this November 13/2018.No history of previous seizure episodes and previous head ct no infarct or hemorrhage.Has DM2,HTN.On his arrival at ER was found to be more awake ,oriented ,cooperative with no agitation noted,speech was fluent. Timing/Duration: 1-3 hours Severity: moderate Improving Factors: nothing Associated Symptoms: other - see hpi Allergies/Adverse Reactions: Allergies NO KNOWN ALLERGY Allergy (Verified 03/28/17 16:13) Home Medications: Ambulatory Orders Aripiprazole [Abilify] 10 mg PO DAILY 03/30/15 Atorvastatin Calcium [Lipitor] 40 mg PO BEDTIME 03/30/15 Esomeprazole Magnesium [Nexium] 20 mg PO DAILY 03/30/15 Aspirin (Buffered) 325 mg [Bufferin 325 mg] 1 ea PO DAILY 05/27/17 Linagliptin [Tradjenta] 5 mg PO DAILY 05/27/17 Lisinopril & Hydrochlorothiazi [Zestoretic 20-25 mg] 1 tab PO DAILY 05/27/17 Magnesium Chloride [Slow-Mag] 64 mg PO DAILY 05/27/17 Metformin HCl [Metformin HCl ER] 1,000 mg PO BID 05/27/17 Potassium Chloride [K-Tab] 10 meq PO DAILY #10 tab 09/22/17 Review of Systems - Review of Systems Constitutional: States: no symptoms reported EENTM: States: no symptoms reported Respiratory: States: no symptoms reported Cardiology: States: no symptoms reported Gastrointestinal/Abdominal: States: no symptoms reported Genitourinary: States: no symptoms reported Musculoskeletal: States: no symptoms reported Skin: States: no symptoms reported Neurological: States: see HPI Endocrine: States: no symptoms reported All other Systems: Reviewed and Negative, No Change from Baseline Past Medical History (General) - Patient Medical History Hx Seizures: No Hx Stroke: No - TIA (?) Hx Dementia: No Hx Asthma: No Hx of COPD: No Hx Cardiac Disorders: No Hx Congestive Heart Failure: No Hx Pacemaker: No Hx Hypertension: Yes Hx Thyroid Disease: No Hx Diabetes: Yes Hx Gastroesophageal Reflux: No Hx Renal Disease: No Hx Cancer: No Hx of HIV: No Hx Hepatitis C: No Hx MRSA: No MRSA Source:: Wound Surgical History: tonsillectomy, other - circumcision - Vaccination History Hx Tetanus, Diphtheria Vaccination: No Hx Influenza Vaccination: Yes - 2017 Hx Pneumococcal Vaccination: No - Social History Hx Tobacco Use: Yes - Quit 2017 Hx Chewing Tobacco Use: Yes - Quit Hx Alcohol Use: Yes Hx Substance Use: No Hx Substance Use Treatment: No Hx Depression: No Hx Physical Abuse: No Hx Emotional Abuse: No Hx Suspected Abuse: No - Activities of Daily Living Patient Lives Alone: No Grooming Ability: Independent Eating (Feeding) Ability: Independent Toileting Ability: Independent Additional ED Patient Information: medically disabled - Female History Patient : No Family Medical History - Family History Mother Family History: Unknown Living Status: Hx Family Diabetes: Yes - mom-brother Hx Family Cancer: Yes - dad-lung Hx Family;Other: SEIZURES-brother Physical Exam - Physical Exam General Appearance: Alert, Comfortable, No apparent distress Eye Exam: bilateral normal ENT Exam: normal ENT inspection, hearing grossly normal, pharynx normal Neck: non-tender, full range of motion, supple Respiratory: chest non-tender, lungs clear, normal breath sounds, no respiratory distress Cardiovascular/Chest: normal peripheral pulses, regular rate, rhythm, no murmur Peripheral Pulses: radial,right: 2+, radial,left: 2+ Gastrointestinal/Abdominal: normal bowel sounds, non tender, soft, no organomegaly Back Exam: normal inspection, no CVA tenderness, no vertebral tenderness Extremities Exam: non-tender, no evidence of injury Mental Status: alert, oriented x 3 econometrician Exam: normal hearing, normal speech, PERRL, other - negative pronator drift Motor/Sensory: no motor deficit, no sensory deficit, no pronator drift Skin Exam: normal color, warm/dry Progress - Progress Progress: 09/22/17 16:39 Vital Signs - 8 hr 09/22/17 14:34 Temperature 97.2 F L Pulse Rate [ 81 left brachial] Respiratory 22 Rate Blood Pressure 146/101 [left brachial] O2 Sat by Pulse 96 Oximetry 09/22/17 17:36 Patient was more alert ate chips and sandwich went to the rest room w/o assistance talking to . - Results/Orders Results/Orders: 09/22/17 14:46 IV Care:Saline Lock per Protoc QSHIFT 09/22/17 16:24 Magnesium Sulfate Premix 2Gm 2 gm Premix Bag 1 bag IVPB ONCE Laboratory Results - last 24 hr 09/22/17 09/22/17 09/22/17 14:50 15:00 15:00 WBC 6.9 RBC 4.59 L Hgb 13.4 L Hct 38.4 L MCV 83.6 MCH 29.1 MCHC 34.9 RDW 13.7 Plt Count 204 MPV 7.6 Absolute Neuts (auto) 4.10 Absolute Lymphs (auto) 2.10 Absolute Monos (auto) 0.60 Absolute Eos (auto) 0.10 Absolute Basos (auto) 0.00 Neutrophils % 59.4 Lymphocytes % 30.0 Monocytes % 8.4 Eosinophils % 1.6 Basophils % 0.6 PT 10.3 INR 0.890 PTT (SP) 29.6 Sodium 140 Potassium 3.1 L Chloride 104 Carbon Dioxide 27 Anion Gap 12.1 BUN 16 Creatinine 0.71 BUN/Creatinine Ratio 22.5 H Random Glucose 178 H Serum Osmolality 285.0 Calcium 9.3 Magnesium 1.4 L Total Bilirubin 0.6 Direct Bilirubin 0.1 Indirect Bilirubin 0.5 AST 21 ALT 26 Alkaline Phosphatase 77 Creatine Kinase 46 CK-MB (CK-2) 0.7 CK-MB (CK-2) % Not Reportable Troponin I 0.01 Serum Total Protein 6.4 Albumin 3.6 Urine Color Yellow Urine Appearance Clear Urine pH 7.5 Ur Specific [place] 1.015 Urine Protein Negative Urine Glucose (UA) 100 H Urine Ketones Negative Urine Blood Trace-intact H Urine Nitrite Negative Urine Bilirubin Negative Urine Urobilinogen 0.2 Ur Leukocyte Esterase Negative Urine RBC 1-3 Urine WBC 0 Ur Epithelial Cells 0 Urine Bacteria 0 Urine Opiates Screen Negative Urine Barbiturates Negative Ur Phencyclidine Scrn Negative U Amphetamin/Meth Scrn Negative U Benzodiazepines Scrn Negative U Cocaine Metab Screen Negative U Cannabinoids Screen Positive H - EKG/XRAY/CT CT Ordered: Yes - head no acute abnormalities Departure - Departure Clinical Impression: Transient alteration of awareness, Diuretic-induced hypokalemia, Hypomagnesemia , Cannabis dependence Time of Disposition: 17:39 Disposition: Discharge to Home or Self Care Condition: Fair Departure Forms: ED Discharge - Pt. Copy, Patient Portal Self Enrollment Referrals: Gina Lazaro, PRESCHOOL PROGRAM DIRECTOR [Primary Care Provider] - 1-2 Weeks Prescriptions: Potassium Chloride [K-Tab] 10 meq PO DAILY #10 tab Home Medications: Ambulatory Orders Aripiprazole [Abilify] 10 mg PO DAILY 03/30/15 Atorvastatin Calcium [Lipitor] 40 mg PO BEDTIME 03/30/15 Esomeprazole Magnesium [Nexium] 20 mg PO DAILY 03/30/15 Aspirin (Buffered) 325 mg [Bufferin 325 mg] 1 ea PO DAILY 05/27/17 Linagliptin [Tradjenta] 5 mg PO DAILY 05/27/17 Lisinopril & Hydrochlorothiazi [Zestoretic 20-25 mg] 1 tab PO DAILY 05/27/17 Magnesium Chloride [Slow-Mag] 64 mg PO DAILY 05/27/17 Metformin HCl [Metformin HCl ER] 1,000 mg PO BID 05/27/17 Potassium Chloride [K-Tab] 10 meq PO DAILY #10 tab 09/22/17 Additional Instructions: Keep appointment with primary Md 25 September 2017 and neurologist November 2017; Take 2 tablets of slow mag in am;Return to ER as needed
[2017-09-22 14:50] VITALS: TEMP 97.2
--- NOTE | 2017-09-22 15:09 | CT ---
EXAM DESCRIPTION: Head CLINICAL HISTORY: altered mental status COMPARISON: None available TECHNIQUE: Non contrast cranial CT This exam was performed according to our departmental dose-optimization program, which includes automated exposure control, adjustment of the mA and/or kV according to patient size and/or use of iterative reconstruction technique. FINDINGS: Ventricles and sulci are unremarkable for age. There is no hemorrhage or mass or subdural hematoma. There are no significant white matter abnormalities detected. The calvarium is unremarkable. The visualized paranasal sinuses and the mastoids are clear. Small normal ventricular system and cortical sulci and subarachnoid spaces noted. IMPRESSION: 1. Normal unenhanced CT evaluation of the head Electronically signed by: Duc Keith MD 09/22/2017 3:07 PM CDT
[2017-09-22] MEDS: LACTATED RINGERS 1,000 ML IVS ONE (15:34)
[2017-09-22] MEDS ORDERED: MAGNESIUM SULFATE PREMIX 2GM 50 ML IVPB ONE (16:44)
[2017-09-22] MEDS: MAGNESIUM SULFATE PREMIX 2GM 2 GM in PREMIX BAG 1 BAG IVPB ONE (16:47)
[2017-09-22] MEDS: POTASSIUM CHLORIDE 20 MEQ TAB PO ONE (17:00)
[2017-09-22 18:00] VITALS: BP 155/77; O2SAT 96
== END 2017-09-22 17:40 | disposition home or self-care (01) ==
LOC: ER 14:31
DX: R41.82 Altered mental status, unspecified (principal); E87.6 Hypokalemia; T50.2X5A Adverse effect of carbonic-anhydrase inhibitors, benzothiadiazides and other diuretics, initial encounter; F12.20 Cannabis dependence, uncomplicated; Z87.891 Personal history of nicotine dependence; I10 Essential (primary) hypertension; E11.9 Type 2 diabetes mellitus without complications; Z86.73 Personal history of transient ischemic attack (TIA), and cerebral infarction without residual deficits; Y92.9 Unspecified place or not applicable; Z79.82 Long term (current) use of aspirin; Z79.899 Other long term (current) drug therapy

== ENCOUNTER → 2017-09-25 | Outpatient (CLI) | payer OTHER ==
--- NOTE | 2017-09-25 15:40 | RAD ---
EXAM DESCRIPTION: Lumbar Spine 5 Views CLINICAL HISTORY: LOW BACK PAIN COMPARISON: None Available. TECHNIQUE: AP/lateral/ coned-down lateral/both obliques FINDINGS: Five view lumbar spine shows good alignment of the lumbar spine. There is no vertebral abnormality. The intervertebral disc space height is well-maintained. Mild anterosuperior spurring at vertebral margins of L4 and L5. There are no abnormalities of the posterior elements demonstrated.. No pars fracture is seen on the oblique images. IMPRESSION: Negative for fracture or dislocation. Mild degenerative changes as described. Electronically signed by: Ubaldo Cruz MD 09/25/2017 3:38 PM CDT
== END ==
LOC: LAB.O 10:52
PROVIDERS: ATTEND Nurse Practitioner Family
DX: M54.5 Low back pain (principal); E83.42 Hypomagnesemia; E87.6 Hypokalemia

== ENCOUNTER 2017-10-28 15:08 | Emergency (ER) | payer OTHER ==
[2017-10-28 15:17] VITALS: TEMP 98.5
[2017-10-28] MEDS ORDERED: POTASSIUM CHLORIDE ELIXIR 20 MEQ/15 ML UD PO ONE (15:45)
[2017-10-28 16:07] VITALS: O2SAT 97
[2017-10-28] MEDS ORDERED: MAGNESIUM SULFATE PREMIX 2GM 2 GM in PREMIX BAG 1 BAG IVPB ONE (16:10)
[2017-10-28] MEDS ORDERED: MAGNESIUM SULFATE PREMIX 2GM 50 ML IVPB ONE (16:16)
--- NOTE | 2017-10-28 16:51 | ED.PDOC ---
History of Present Illness - General Chief Complaint: Neuro Symptoms/Deficits Stated Complaint: s/p seizure Time Seen by Provider: 10/28/17 15:20 Source: patient Exam Limitations: no limitations - History of Present Illness Initial Comments: the patient is a 57-year-old male presenting to the emergency room after having seizure-like activity at home. His and he had been taking a nap when she woke up to him having clonic jerking of his upper and lower extremities and inability to speak. He was awake. He was breathing on his own. Episode lasted probably 20 minutes. She reports that over the last year and a half he has had probably 5 other similar episodes. He does have known hypokalemia and hypomagnesemia. Additionally his 3 brothers have all had seizure disorders. He reports that he does remember most of the episodes. No history of any hypoglycemia. He does take Abilify. He does take hydrochlorothiazide. No incontinence. No biting of the tongue. reports that most episodes occur in the afternoon. It is been several months since his last episode. she reports that when the movement issue stopped he is quickly able to communicate with very minimal confusion.he has had multiple visits to the emergency room after these episodes and has had multiple CT scans that are normal in the last year. Timing/Duration: 1/2 hour Severity: moderate Improving Factors: nothing Worsening Factors: nothing Associated Symptoms: denies symptoms Allergies/Adverse Reactions: Allergies NO KNOWN ALLERGY Allergy (Verified 03/28/17 16:13) Home Medications: Ambulatory Orders Aripiprazole [Abilify] 10 mg PO DAILY 03/30/15 Atorvastatin Calcium [Lipitor] 40 mg PO BEDTIME 03/30/15 Esomeprazole Magnesium [Nexium] 20 mg PO DAILY 03/30/15 Aspirin (Buffered) 325 mg [Bufferin 325 mg] 1 ea PO DAILY 05/27/17 Linagliptin [Tradjenta] 5 mg PO DAILY 05/27/17 Lisinopril & Hydrochlorothiazi [Zestoretic 20-25 mg] 1 tab PO DAILY 05/27/17 Magnesium Chloride [Slow-Mag] 71.5 mg PO DAILY 05/27/17 Metformin HCl [Metformin HCl ER] 1,000 mg PO BID 05/27/17 Potassium Chloride [K-Tab] 10 meq PO DAILY #10 tab 09/22/17 Review of Systems - Review of Systems Constitutional: States: malaise EENTM: States: no symptoms reported Respiratory: States: no symptoms reported Cardiology: States: no symptoms reported Gastrointestinal/Abdominal: States: no symptoms reported Genitourinary: States: no symptoms reported Musculoskeletal: States: see HPI Skin: States: no symptoms reported Neurological: States: see HPI All other Systems: No Change from Baseline Past Medical History (General) - Patient Medical History Hx Seizures: Yes Hx Stroke: No - TIA (?) Hx Dementia: No Hx Asthma: No Hx of COPD: No Hx Cardiac Disorders: No Hx Congestive Heart Failure: No Hx Pacemaker: No Hx Hypertension: Yes Hx Thyroid Disease: No Hx Diabetes: Yes Hx Gastroesophageal Reflux: No Hx Renal Disease: No Hx Cancer: No Hx of HIV: No Hx Hepatitis C: No Hx MRSA: No MRSA Source:: Wound Surgical History: tonsillectomy - Vaccination History Hx Tetanus, Diphtheria Vaccination: No Hx Influenza Vaccination: Yes Hx Pneumococcal Vaccination: No - Social History Hx Tobacco Use: Yes Hx Chewing Tobacco Use: Yes - Quit Hx Alcohol Use: Yes Hx Substance Use: No Hx Substance Use Treatment: No Hx Depression: No Hx Physical Abuse: No Hx Emotional Abuse: No Hx Suspected Abuse: No - Female History Patient : No Family Medical History - Family History Mother Family History: Unknown Living Status: Hx Family Diabetes: Yes - mom-brother Hx Family Cancer: Yes - dad-lung Hx Family;Other: SEIZURES-brother Physical Exam - Physical Exam General Appearance: Alert, Comfortable, No apparent distress Eye Exam: bilateral normal Ears, Nose, Throat: hearing grossly normal, normal ENT inspection, normal pharynx Neck: full range of motion, supple Respiratory: lungs clear, normal breath sounds, no respiratory distress, no accessory muscle use Cardiovascular/Chest: normal peripheral pulses, regular rate, rhythm, no edema Peripheral Pulses: radial,right: 2+, radial,left: 2+, dorsalis pedis,right: 2+, dorsalis pedis,left: 2+ Gastrointestinal/Abdominal: non tender, soft Rectal Exam: deferred Back Exam: normal inspection, no CVA tenderness Extremity: normal range of motion, non-tender, normal inspection, no pedal edema , normal capillary refill 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 This most likely does represent complex partial seizure activity. He has an appointment scheduled with neurology in 2 weeks for further evaluation. It is possible that his Abilify may be lowering his seizure threshold. This may be related to a familial disorder. This also may be complicated by his hypokalemia and hypomagnesemia. He is to continue his supplements of both. He is going to be discontinued from the hydrochlorothiazide. He does need to have levels rechecked in 1 week. He has received doses of both here today. There is also a possibility of other such etiologies such as hypokalemic periodic paralysis, which is familial and could possibly go along with his given family history. ER warnings were given. He is not to drive or perform any high-risk activities. he should follow-up with his primary care doctor next week. If correction of his electrolyte issues fail to improve the situation, then consideration could be given towards titrating off the Abilify and onto a different medication for his bipolar disorder such as Tegretol or Lamictal. - Results/Orders Results/Orders: Laboratory Tests 10/28/17 10/28/17 15:22 15:22 WBC 7.7 RBC 4.71 Hgb 13.9 L Hct 39.7 L MCV 84.4 MCH 29.5 MCHC 35.0 RDW 13.4 Plt Count 204 MPV 7.9 Absolute Neuts (auto) 5.00 Absolute Lymphs (auto) 1.90 Absolute Monos (auto) 0.60 Absolute Eos (auto) 0.10 Absolute Basos (auto) 0.00 Neutrophils % 65.3 Lymphocytes % 24.5 Monocytes % 7.8 Eosinophils % 1.9 Basophils % 0.5 Sodium 136 Potassium 3.3 L Chloride 103 Carbon Dioxide 26 Anion Gap 10.3 L BUN 16 Creatinine 0.83 BUN/Creatinine Ratio 19.3 Random Glucose 219 H Serum Osmolality 279.8 Calcium 9.1 Magnesium 1.3 L Total Bilirubin 0.5 AST 18 ALT 18 Alkaline Phosphatase 80 Creatine Kinase 47 CK-MB (CK-2) 0.8 CK-MB (CK-2) % Not Reportable Troponin I < 0.02 Serum Total Protein 6.7 Albumin 3.5 Globulin 3.2 Albumin/Globulin Ratio 1.1 Departure - Departure Clinical Impression: Hypokalemia, Hypomagnesemia Complex partial seizure Qualifiers: Epilepsy type: partial symptomatic Intractability: not intractable Status epilepticus: without status epilepticus Qualified Code(s): G40.209 - Localization-related (focal) (partial) symptomatic epilepsy and epileptic syndromes with complex partial seizures, not intractable, without status epilepticus Disposition: Discharge to Home or Self Care Condition: Fair Departure Forms: ED Discharge - Pt. Copy, Patient Portal Self Enrollment Instructions: DI for Altered Mental Status Diet: regular diet Activity: increase activity as tolerated Referrals: Gina Lazaro, DIRECTOR [employer]GANIZATIONAL [Primary Care Provider] - 1-5 Days Home Medications: Ambulatory Orders Aripiprazole [Abilify] 10 mg PO DAILY 03/30/15 Atorvastatin Calcium [Lipitor] 40 mg PO BEDTIME 03/30/15 Esomeprazole Magnesium [Nexium] 20 mg PO DAILY 03/30/15 Aspirin (Buffered) 325 mg [Bufferin 325 mg] 1 ea PO DAILY 05/27/17 Linagliptin [Tradjenta] 5 mg PO DAILY 05/27/17 Lisinopril & Hydrochlorothiazi [Zestoretic 20-25 mg] 1 tab PO DAILY 05/27/17 Magnesium Chloride [Slow-Mag] 71.5 mg PO DAILY 05/27/17 Metformin HCl [Metformin HCl ER] 1,000 mg PO BID 05/27/17 Potassium Chloride [K-Tab] 10 meq PO DAILY #10 tab 09/22/17 Additional Instructions: the patient is a 57-year-old male presented to the emergency room after seizure type activity at home. This most likely does represent complex partial seizure activity. He has an appointment scheduled with neurology in 2 weeks for further evaluation. It is possible that his Abilify may be lowering his seizure threshold. This may be related to a familial disorder. This also may be complicated by his hypokalemia and hypomagnesemia. He is to continue his supplements of both. He is going to be discontinued from the hydrochlorothiazide. He does need to have levels rechecked in 1 week. He has received doses of both here today. There is also a possibility of other such etiologies such as hypokalemic periodic paralysis, which is familial and could possibly go along with his given family history. ER warnings were given. He is not to drive or perform any high-risk activities. he should follow-up with his primary care doctor next week. If correction of his electrolyte issues fail to improve the situation, then consideration could be given towards titrating off the Abilify and onto a different medication for his bipolar disorder such as Tegretol or Lamictal.
[2017-10-28 17:13] VITALS: BP 129/87
== END 2017-10-28 17:13 | disposition home or self-care (01) ==
LOC: ER 15:08
DX: G40.209 Localization-related (focal) (partial) symptomatic epilepsy and epileptic syndromes with complex partial seizures, not intractable, without status epilepticus (principal); E87.6 Hypokalemia; E83.42 Hypomagnesemia; Z87.891 Personal history of nicotine dependence; I10 Essential (primary) hypertension; E11.9 Type 2 diabetes mellitus without complications; F31.9 Bipolar disorder, unspecified; Z79.82 Long term (current) use of aspirin; Z79.84 Long term (current) use of oral hypoglycemic drugs; Z79.899 Other long term (current) drug therapy
CPT/HCPCS: 36415; 80053; 82550; 82553; 83735; 84484; 85025; J3475

== ENCOUNTER 2017-11-17 21:27 | Emergency (ER) | payer OTHER ==
[2017-11-17] MEDS ORDERED: IPRATROPIUM/ALBUTEROL 3 ML VIAL NEB ONE (21:46)
--- NOTE | 2017-11-17 21:52 | ED.PDOC ---
History of Present Illness - General Chief Complaint: Neuro Symptoms/Deficits Stated Complaint: post seizure Time Seen by Provider: 11/17/17 21:46 Source: patient, family Exam Limitations: no limitations - History of Present Illness Timing/Duration: 1-3 hours Severity: moderate Improving Factors: nothing Worsening Factors: nothing Associated Symptoms: headaches, shortness of breath, weakness, other - family reports blank stairing episode, pt states headache and has history of siezure, seeing neurology and is scheduled to have further workup next week including MRI and EEG. currently on no siezure medicaitons. no atypical presentation today , history of CVA which neurology has stated that is likly cause to seizures. also noted cough, sob, phlegm and history of tobacco use in the past. no recent falls, no numbness/ weakness/ progressive symptoms. Allergies/Adverse Reactions: Allergies NO KNOWN ALLERGY Allergy (Verified 03/28/17 16:13) Home Medications: Ambulatory Orders Aripiprazole [Abilify] 10 mg PO DAILY 03/30/15 Atorvastatin Calcium [Lipitor] 40 mg PO BEDTIME 03/30/15 Esomeprazole Magnesium [Nexium] 20 mg PO DAILY 03/30/15 Aspirin (Buffered) 325 mg [Bufferin 325 mg] 1 ea PO DAILY 05/27/17 Linagliptin [Tradjenta] 5 mg PO DAILY 05/27/17 Lisinopril & Hydrochlorothiazi [Zestoretic 20-25 mg] 1 tab PO DAILY 05/27/17 Magnesium Chloride [Slow-Mag] 71.5 mg PO DAILY 05/27/17 Metformin HCl [Metformin HCl ER] 1,000 mg PO BID 05/27/17 Potassium Chloride [K-Tab] 10 meq PO DAILY #10 tab 09/22/17 Amoxicillin 875 mg PO BID #14 tab 11/17/17 Levetiracetam [Keppra] 500 mg PO BID #30 tab 11/17/17 Prednisone 50 mg PO DAILY #5 tab 11/17/17 Review of Systems - Review of Systems Constitutional: States: no symptoms reported EENTM: States: no symptoms reported Respiratory: States: cough, wheezing Cardiology: States: no symptoms reported Gastrointestinal/Abdominal: States: no symptoms reported Genitourinary: States: no symptoms reported Musculoskeletal: States: no symptoms reported Skin: States: no symptoms reported Neurological: States: headache, seizure Endocrine: States: no symptoms reported Hematologic/Lymphatic: States: no symptoms reported Past Medical History (General) - Patient Medical History Hx Seizures: Yes Hx Stroke: No - TIA (?) Hx Dementia: No Hx Asthma: No Hx of COPD: No Hx Cardiac Disorders: No Hx Congestive Heart Failure: No Hx Pacemaker: No Hx Hypertension: Yes Hx Thyroid Disease: No Hx Diabetes: Yes Hx Gastroesophageal Reflux: No Hx Renal Disease: No Hx Cancer: No Hx of HIV: No Hx Hepatitis C: No Hx MRSA: No MRSA Source:: Wound - Vaccination History Hx Tetanus, Diphtheria Vaccination: No Hx Influenza Vaccination: Yes Hx Pneumococcal Vaccination: No - Social History Hx Tobacco Use: Yes Hx Chewing Tobacco Use: Yes - Quit Hx Alcohol Use: Yes Hx Substance Use: No Hx Substance Use Treatment: No Hx Depression: No Hx Physical Abuse: No Hx Emotional Abuse: No Hx Suspected Abuse: No - Female History Patient : No Family Medical History - Family History Mother Family History: Unknown Living Status: Hx Family Diabetes: Yes - mom-brother Hx Family Cancer: Yes - dad-lung Hx Family;Other: SEIZURES-brother Physical Exam - Physical Exam General Appearance: Alert, Comfortable Eye Exam: bilateral normal Ears, Nose, Throat: hearing grossly normal, normal ENT inspection, normal pharynx Neck: non-tender, full range of motion, supple Respiratory: chest non-tender, wheezing Cardiovascular/Chest: normal peripheral pulses, regular rate, rhythm Peripheral Pulses: radial,right: 2+ Gastrointestinal/Abdominal: non tender, soft Back Exam: normal inspection Extremity: normal range of motion, non-tender, normal inspection 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, no motor/sensory deficits, alert, normal mood/affect, oriented x 3 Skin Exam: normal color, warm/dry Lymphatic: no adenopathy Progress - Progress Progress: 11/17/17 23:04 11/17/17 22:00 EKG STAT 11/17/17 23:03 levETIRAcetam INJ [Keppra INJECTION] 500 mg Sodium Chloride 0.9% 100Ml [NS ( NACL 0.9%) 100ml] 100 ml IVPB ONCE 11/17/17 23:04 Albuterol INH (ER Dispense) [Proventil Hfa (ER Dispense)] 2 puff INH ONCE ONE 11/17/17 23:30 Amoxicillin Tab [Amoxil Tab] 875 mg PO Q12H Laboratory Results WBC 11.6 K/mm3 (4.8-10.8) H 11/17/17 21:46 RBC 4.71 M/mm3 (4.70-6.10) 11/17/17 21:46 Hgb 14.0 gm/dL (14.0-18.0) 11/17/17 21:46 Hct 40.0 % (42.0-52.0) L 11/17/17 21:46 MCV 84.9 fl (80.0-94.0) 11/17/17 21:46 MCH 29.6 pg (27.0-31.0) 11/17/17 21:46 MCHC 34.9 g/dL (33.0-37.0) 11/17/17 21:46 RDW 13.3 % (11.5-14.5) 11/17/17 21:46 Plt Count 214 K/mm3 (130-400) 11/17/17 21:46 MPV 7.8 fl (7.40-10.4) 11/17/17 21:46 Absolute Neuts (auto) 9.40 K/uL (1.8-6.8) H 11/17/17 21:46 Absolute Lymphs (auto) 1.20 K/uL (1.0-3.4) 11/17/17 21:46 Absolute Monos (auto) 0.90 K/uL (0.2-0.8) H 11/17/17 21:46 Absolute Eos (auto) 0.10 K/uL (0.0-0.4) 11/17/17 21:46 Absolute Basos (auto) 0.00 K/uL (0.0-0.1) 11/17/17 21:46 Neutrophils % 80.6 % (42.0-78.0) H 11/17/17 21:46 Lymphocytes % 10.5 % (20.0-50.0) L 11/17/17 21:46 Monocytes % 7.4 % (2.0-9.0) 11/17/17 21:46 Eosinophils % 1.2 % (1.0-5.0) 11/17/17 21:46 Basophils % 0.3 % (0.0-2.0) 06/08/18 21:46 Sodium 139 mmol/L (135-145) 11/17/17 21:46 Potassium 3.2 mmol/L (3.6-5.0) L 11/17/17 21:46 Chloride 107 mmol/L (101-111) 11/17/17 21:46 Carbon Dioxide 25 mmol/L (21-31) 11/17/17 21:46 Anion Gap 10.2 (12-18) L 11/17/17 21:46 BUN 16 mg/dL (7-18) 11/17/17 21:46 Creatinine 0.63 mg/dL (0.6-1.3) 11/17/17 21:46 BUN/Creatinine Ratio 25.4 (10-20) H 11/17/17 21:46 Random Glucose 186 mg/dL (70-105) H 11/17/17 21:46 Serum Osmolality 283.6 mOsm/L (275-295) 11/17/17 21:46 Calcium 8.5 mg/dL (8.4-10.2) 11/17/17 21:46 Total Bilirubin 0.8 mg/dL (0.2-1.0) 11/17/17 21:46 AST 14 IU/L (10-42) 11/17/17 21:46 ALT 14 IU/L (10-60) 11/17/17 21:46 Alkaline Phosphatase 82 IU/L (42-121) 11/17/17 21:46 Troponin I < 0.02 ng/mL (0.01-0.05) 11/17/17 21:47 Serum Total Protein 6.8 gm/dL (6.4-8.2) 11/17/17 21:46 Albumin 3.7 g/dl (3.2-5.5) 11/17/17 21:46 Globulin 3.1 gm/dL (2.3-3.5) 11/17/17 21:46 Albumin/Globulin Ratio 1.2 (1.1-1.9) 11/17/17 21:46 Urine Color Yellow (Yellow) 11/17/17 22:47 Urine Appearance Clear (Clear) 11/17/17 22:47 Urine pH 5.5 (4.5-7.8) 11/17/17 22:47 Ur Specific [place] >= 1.030 (1.005-1.030) 11/17/17 22:47 Urine Protein Trace mg/dL 11/17/17 22:47 Urine Glucose (UA) 500 mg/dL (Negative) H 11/17/17 22:47 Urine Ketones Negative mg/dL (NEGATIVE) 11/17/17 22:47 Urine Blood Trace-intact (Negative) H 11/17/17 22:47 Urine Nitrite Negative 11/17/17 22:47 Urine Bilirubin Negative (NEGATIVE) 11/17/17 22:47 Urine Urobilinogen 0.2 mg/dL (0.2-1.0) 11/17/17 22:47 Ur Leukocyte Esterase Negative (Negative) 11/17/17 22:47 Urine RBC 1-3 /hpf 11/17/17 22:47 Urine WBC 0-1 /hpf 11/17/17 22:47 Ur Epithelial Cells 0-1 /hpf 11/17/17 22:47 Urine Bacteria 0 11/17/17 22:47 ct head negative for acute process or ICH, cxr negative for acute process 11/17/17 23:10 ekg rate 88, pr 172, qrs 84, qtc 430 NSR no STEMI Departure - Departure Clinical Impression: Seizure, COPD exacerbation Time of Disposition: 23:06 Disposition: Discharge to Home or Self Care Condition: Good Departure Forms: ED Discharge - Pt. Copy, Patient Portal Self Enrollment Instructions: Seizure Disorder -- Adult, Chronic Obstructive Pulmonary Disease Diet: resume usual diet Activity: increase activity as tolerated Referrals: Gina Lazaro NP [Primary Care Provider] - 1-2 Weeks Prescriptions: Amoxicillin 875 mg PO BID #14 tab Levetiracetam [Keppra] 500 mg PO BID #30 tab Prednisone 50 mg PO DAILY #5 tab Home Medications: Ambulatory Orders Aripiprazole [Abilify] 10 mg PO DAILY 03/30/15 Atorvastatin Calcium [Lipitor] 40 mg PO BEDTIME 03/30/15 Esomeprazole Magnesium [Nexium] 20 mg PO DAILY 03/30/15 Aspirin (Buffered) 325 mg [Bufferin 325 mg] 1 ea PO DAILY 05/27/17 Linagliptin [Tradjenta] 5 mg PO DAILY 05/27/17 Lisinopril & Hydrochlorothiazi [Zestoretic 20-25 mg] 1 tab PO DAILY 05/27/17 Magnesium Chloride [Slow-Mag] 71.5 mg PO DAILY 05/27/17 Metformin HCl [Metformin HCl ER] 1,000 mg PO BID 05/27/17 Potassium Chloride [K-Tab] 10 meq PO DAILY #10 tab 09/22/17 Amoxicillin 875 mg PO BID #14 tab 11/17/17 Levetiracetam [Keppra] 500 mg PO BID #30 tab 11/17/17 Prednisone 50 mg PO DAILY #5 tab 11/17/17
--- NOTE | 2017-11-17 22:54 | RAD ---
EXAM: Chest,1 View CLINICAL INDICATION: 57-year-old male with seizure and headache. TECHNIQUE: Single view, AP portable chest was obtained. COMPARISON: Single view chest 06/15/2017. FINDINGS: Unremarkable cardiac and mediastinal silhouette. Heart size is normal. Lungs are clear without focal opacity, pneumothorax or pleural effusions. The visualized bones are within normal limits. IMPRESSION: No acute cardiopulmonary abnormalities. Electronically signed by: Anabelle Yee MD 11/17/2017 10:53 PM CDT
--- NOTE | 2017-11-17 22:57 | CT ---
EXAM: Head CLINICAL INDICATION: 57-year-old male with seizure and headache. COMPARISON: 09/22/2017. Noncontrast CT brain. TECHNIQUE: CT brain without contrast. This exam was performed according to our departmental dose optimization program which includes use of automated exposure control, adjustment of the mA and/or kV according to patient size and/or use of iterative reconstruction technique. FINDINGS: The ventricles, sulci, and cisterns are within normal limits. The monroe-white matter differentiation is preserved. There is no mass effect, midline shift, intra- or extra-axial fluid collection/acute hemorrhage. The osseous structures are unremarkable. The paranasal sinuses and mastoid air cells are clear. IMPRESSION: No acute intracranial abnormalities. Electronically signed by: Anabelle Yee MD 11/17/2017 10:56 PM CDT
[2017-11-17] MEDS ORDERED: methylPREDNISolone SODIUM SUC 125 MG/2 ML VIAL IV ONE (23:02)
[2017-11-17] MEDS ORDERED: levETIRAcetam INJ 500 MG in SODIUM CHLORIDE 0.9% 100ML 100 ML IVPB ONE (23:03)
[2017-11-17] MEDS ORDERED: ALBUTEROL INH (ER DISPENSE) 1 EA INH INH ONE (23:04)
[2017-11-17] MEDS ORDERED: SODIUM CHLORIDE 0.9% 100ML 100 ML IVPB ONE (23:07)
[2017-11-17] MEDS ORDERED: levETIRAcetam INJ 100 MG/ML VIAL IVPB ONE (23:07)
[2017-11-17] MEDS ORDERED: AMOXICILLIN TRIHYDRATE 875 MG TAB PO SCH (23:30)
[2017-11-18 00:18] VITALS: BP 152/82; TEMP 98.2; O2SAT 95
== END 2017-11-18 | disposition home or self-care (01) ==
LOC: ER 21:27
DX: R56.9 Unspecified convulsions (principal); J44.1 Chronic obstructive pulmonary disease with (acute) exacerbation; I10 Essential (primary) hypertension; E11.9 Type 2 diabetes mellitus without complications; Z87.891 Personal history of nicotine dependence; Z86.73 Personal history of transient ischemic attack (TIA), and cerebral infarction without residual deficits; Z79.82 Long term (current) use of aspirin; Z79.84 Long term (current) use of oral hypoglycemic drugs
CPT/HCPCS: 36415; 70450; 71045; 80053; 81001; 84484; 85025; 93005; 94640; 94664; J2930; J7050; J7620

== ENCOUNTER → 2018-06-26 | Outpatient (CLI) | payer OTHER | LOC: YCFC.O 10:19 | PROVIDERS: ATTEND Nurse Practitioner Family | DX: E11.65 Type 2 diabetes mellitus with hyperglycemia (principal); I10 Essential (primary) hypertension; E78.2 Mixed hyperlipidemia ==

== ENCOUNTER 2018-10-18 04:08 | Emergency (ER) | payer OTHER ==
--- NOTE | 2018-10-18 04:27 | RAD ---
EXAM: XR Chest, 1 View CLINICAL HISTORY: The patient is 58 years old and is Male; reports coughing constantly TECHNIQUE: Frontal view of the chest. COMPARISON: Chest radiograph November 17, 2017. FINDINGS: LUNGS: Unremarkable. No consolidation. PLEURAL SPACE: Unremarkable. No pneumothorax. HEART: Unremarkable. No cardiomegaly. MEDIASTINUM: Unremarkable. BONES/JOINTS: Unremarkable. IMPRESSION: No acute cardiopulmonary process. Electronically signed by: Olivia Heath MD 10/18/2018 4:26 AM CDT
--- NOTE | 2018-10-18 04:49 | CT ---
CT head without contrast on 10/18/2018 CLINICAL INDICATION: Dizziness, syncope TECHNIQUE: Multiple axial images are obtained throughout the head without the administration of contrast. This exam was performed according to our departmental dose-optimization program, which includes automated exposure control, adjustment of the mA and/or kV according to patient size and/or use of iterative reconstruction technique. Total DLP is 859.97 mGy*cm. COMPARISON: 11/17/2017 FINDINGS: There is no hydrocephalus. There is no CT evidence of acute infarct. There is no hemorrhage. There are no abnormal extra-axial fluid collections. There is no mass, mass effect or midline shift. No bony abnormality is noted. Bilateral maxillary, ethmoid and sphenoid sinusitis is noted with mucosal thickening and some air-fluid levels especially in the maxillary sinuses. IMPRESSION: 1. No acute intracranial abnormality. 2. Sinusitis as above. Electronically signed by: Baljit Murphy 10/18/2018 4:47 AM CDT
[2018-10-18 05:28] VITALS: TEMP 98.8; O2SAT 94
--- NOTE | 2018-10-18 05:45 | ED.PDOC ---
History of Present Illness - General Chief Complaint: General Stated Complaint: "feeling dizzy" when got up to BR, coughing Time Seen by Provider: 10/18/18 05:24 Source: patient, RN notes reviewed, Vital Signs reviewed, EMS notes reviewed Additional Information: 58 YEAR OLD WHITE MALE WITH HISTORY OF DM HTN BROUGHT HERE BY EMS FOR EVALUATION OF DIZZINESS HEAD SPINNING AND ? PASSED OUT AND HIS FOUND HIM HE WAS HAVING SLURRED SPEECH THAT RESOLVED HE DISCRIBES HIS EXPERIENCE VERTIGO ( I FELT LIKE A DRUNK UNSTEADY AND HEAD WAS SPINIING )EMS BLOOD GLUCOSE WAS NORMAL HE HAS HAD SIMILAR EPISODES ALMOST TWICE A MONTH AND HAS A NEUROLOGIST IN [place] WHO RECENTLY DID A COMPLETE WORK UP INCLUDING A MRI AND EEG ( JUL 2018 ) AND REPORTED NORMAL HE ADMITS TO SMOKING MJ LAST EVENING HE IS NOW ALERT OREINTED AND ANSWERS QUESTIONS APPROPRIATELY HIS VS STABLE HE WAS AMBULATED IN THE [place] AND DID SO WELL GAIT NORMAL PHYSICAL EXAM ALERT OREINTED X3 HENNT NORMAL CRANIAL 2-12 NORMAL NO SENSORY DEFICIT NO MOTOR DEFICIT STRENGTH TONE REFLEXES NORMAL AND SYMETRICAL NEG BABINSKI NO CEREBELLAR SIGNS HEART NORMAL REGULAR PULSE LUNGS CLEAR NO HYPOXIA - History of Present Illness Improving Factors: nothing Worsening Factors: nothing Associated Symptoms: syncope Allergies/Adverse Reactions: Allergies NO KNOWN ALLERGY Allergy (Verified 03/28/17 16:13) Home Medications: Ambulatory Orders Aripiprazole [Abilify] 10 mg PO DAILY 03/30/15 Atorvastatin Calcium [Lipitor] 40 mg PO BEDTIME 03/30/15 Esomeprazole Magnesium [Nexium] 20 mg PO DAILY 03/30/15 Aspirin (Buffered) 325 mg [Bufferin 325 mg] 1 ea PO DAILY 05/27/17 Linagliptin [Tradjenta] 5 mg PO DAILY 05/27/17 Lisinopril & Hydrochlorothiazi [Zestoretic 20-25 mg] 1 tab PO DAILY 05/27/17 Magnesium Chloride [Slow-Mag] 71.5 mg PO DAILY 05/27/17 Metformin HCl [Metformin HCl ER] 1,000 mg PO BID 05/27/17 Potassium Chloride [K-Tab] 10 meq PO DAILY #10 tab 09/22/17 Amoxicillin 875 mg PO BID #14 tab 11/17/17 Levetiracetam [Keppra] 500 mg PO BID #30 tab 11/17/17 Prednisone 50 mg PO DAILY #5 tab 11/17/17 Meclizine HCl [Antivert] 25 mg PO TID #30 tab 10/18/18 Review of Systems - Review of Systems Constitutional: States: no symptoms reported EENTM: States: no symptoms reported Respiratory: States: no symptoms reported Cardiology: States: no symptoms reported Gastrointestinal/Abdominal: States: no symptoms reported Genitourinary: States: no symptoms reported Musculoskeletal: States: no symptoms reported Skin: States: no symptoms reported Neurological: States: no symptoms reported Endocrine: States: no symptoms reported Hematologic/Lymphatic: States: no symptoms reported Past Medical History (General) - Patient Medical History Hx Seizures: Yes Hx Stroke: Yes - TIA (?) Hx Dementia: No Hx Asthma: No Hx of COPD: No Hx Cardiac Disorders: No Hx Congestive Heart Failure: No Hx Pacemaker: No Hx Hypertension: Yes Hx Thyroid Disease: No Hx Diabetes: Yes Hx Gastroesophageal Reflux: No Hx Renal Disease: No Hx Cancer: No Hx of HIV: No Hx Hepatitis C: No Hx MRSA: No MRSA Source:: Wound Surgical History: tonsillectomy, other - Vaccination History Hx Tetanus, Diphtheria Vaccination: No Hx Influenza Vaccination: Yes Hx Pneumococcal Vaccination: No - Social History Hx Tobacco Use: Yes Hx Chewing Tobacco Use: Yes - Quit Hx Alcohol Use: Yes Hx Substance Use: No Hx Substance Use Treatment: No Hx Depression: No Hx Physical Abuse: No Hx Emotional Abuse: No Hx Suspected Abuse: No - Female History Patient : No Family Medical History - Family History Mother Family History: Unknown Living Status: Hx Family Diabetes: Yes - mom-brother Hx Family Cancer: Yes - dad-lung Hx Family;Other: SEIZURES-brother Physical Exam - Physical Exam General Appearance: Alert, Comfortable Eye Exam: bilateral normal Ears, Nose, Throat: hearing grossly normal, normal ENT inspection, normal pharynx Neck: non-tender, full range of motion, supple Respiratory: chest non-tender, lungs clear, normal breath sounds Cardiovascular/Chest: normal peripheral pulses, regular rate, rhythm, no edema, no gallop, no JVD Peripheral Pulses: radial,right: 2+, radial,left: 2+, femoral,right: 2+, femoral,left: 2+, popliteal,right: 2+, popliteal,left: 2+ Back Exam: normal inspection, no CVA tenderness 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, no motor/sensory deficits, alert, normal mood/affect, oriented x 3 Skin Exam: normal color Lymphatic: no adenopathy Progress - Results/Orders Results/Orders: LABS REVIEWED PT REEXAMINED AND AMBULATED NO SIGNS OF VERTIGO OR NEUROLOGICAL DEFICIT NOTED SINCE HE HAS HAD A RECENT WORK UP HE WAS RECOMMENDED TO FOLLOW UP WITH HIS NEUROLOGIST ADVISED TO CHECK UP WITH PCP ABOUT DIABETIC CONTROL AND HYPERTENSION Departure - Departure Clinical Impression: Hypertension, Vertigo, Marijuana smoker, Diabetes, Transient ischaemic attack (TIA), and cerebral infarction without residual deficits Time of Disposition: 05:50 Disposition: Discharge to Home or Self Care Condition: Good Departure Forms: ED Discharge - Pt. Copy, Patient Portal Self Enrollment Diet: resume usual diet - PATIENT ADVISED TO REFRAIN FROM MJ USE AND FOLLOW U WITH HIS NEUROLOGIST ELYSSA RETURN IF SYMPTOMS RECUR Referrals: Gina Lazaro, RAILROAD CAR INSPECTOR [Primary Care Provider] - 1-2 Weeks Home Medications: Ambulatory Orders Aripiprazole [Abilify] 10 mg PO DAILY 03/30/15 Atorvastatin Calcium [Lipitor] 40 mg PO BEDTIME 03/30/15 Esomeprazole Magnesium [Nexium] 20 mg PO DAILY 03/30/15 Aspirin (Buffered) 325 mg [Bufferin 325 mg] 1 ea PO DAILY 05/27/17 Linagliptin [Tradjenta] 5 mg PO DAILY 05/27/17 Lisinopril & Hydrochlorothiazi [Zestoretic 20-25 mg] 1 tab PO DAILY 05/27/17 Magnesium Chloride [Slow-Mag] 71.5 mg PO DAILY 05/27/17 Metformin HCl [Metformin HCl ER] 1,000 mg PO BID 05/27/17 Potassium Chloride [K-Tab] 10 meq PO DAILY #10 tab 09/22/17 Amoxicillin 875 mg PO BID #14 tab 11/17/17 Levetiracetam [Keppra] 500 mg PO BID #30 tab 11/17/17 Prednisone 50 mg PO DAILY #5 tab 11/17/17 Meclizine HCl [Antivert] 25 mg PO TID #30 tab 10/18/18
[2018-10-18 06:05] VITALS: BP 156/100
== END 2018-10-18 06:05 | disposition home or self-care (01) ==
LOC: ER 04:08
DX: G45.9 Transient cerebral ischemic attack, unspecified (principal); R42 Dizziness and giddiness; F12.90 Cannabis use, unspecified, uncomplicated; I10 Essential (primary) hypertension; E11.9 Type 2 diabetes mellitus without complications; R56.9 Unspecified convulsions; Z87.891 Personal history of nicotine dependence; Z79.899 Other long term (current) drug therapy; Z79.82 Long term (current) use of aspirin; Z79.84 Long term (current) use of oral hypoglycemic drugs

== ENCOUNTER 2019-01-02 18:26 | Emergency (ER) | payer OTHER ==
--- NOTE | 2019-01-02 19:13 | ED.PDOC ---
History of Present Illness - General Chief Complaint: Neuro Symptoms/Deficits Stated Complaint: altered mental status Time Seen by Provider: 01/02/19 18:51 Source: patient Exam Limitations: other - AMS - History of Present Illness Initial Comments: HE WOKE UP FROM A TWO HOUR NAP AND WAS NOTED TO BE CONFUSED. HE IS BROUGHT TO THE ED FOR ASSESMENT. HE HAS HAD EPISODED SIMILAR TO THIS ONE IN THE PAST, THEY HAVE TOLD HIM THAT THESE ARE TIA'S. Timing/Duration: 1 hour Severity: moderate Improving Factors: nothing Worsening Factors: nothing Allergies/Adverse Reactions: Allergies NO KNOWN ALLERGY Allergy (Verified 01/02/19 18:52) Home Medications: Ambulatory Orders Aripiprazole [Abilify] 10 mg PO DAILY 03/30/15 Atorvastatin Calcium [Lipitor] 40 mg PO BEDTIME 03/30/15 Esomeprazole Magnesium [Nexium] 20 mg PO DAILY 03/30/15 Aspirin (Buffered) 325 mg [Bufferin 325 mg] 1 ea PO DAILY 05/27/17 Linagliptin [Tradjenta] 5 mg PO DAILY 05/27/17 Magnesium Chloride [Slow-Mag] 71.5 mg PO DAILY 05/27/17 Metformin HCl [Metformin HCl ER] 1,000 mg PO BID 05/27/17 Potassium Chloride [K-Tab] 10 meq PO DAILY #10 tab 09/22/17 Meclizine HCl [Antivert] 25 mg PO TID PRN 01/02/19 Review of Systems - Review of Systems Constitutional: States: other EENTM: States: no symptoms reported Respiratory: States: no symptoms reported Cardiology: States: no symptoms reported Gastrointestinal/Abdominal: States: no symptoms reported Genitourinary: States: no symptoms reported Musculoskeletal: States: no symptoms reported Skin: States: no symptoms reported Neurological: States: other - CONFUSED Endocrine: States: no symptoms reported Hematologic/Lymphatic: States: no symptoms reported Past Medical History (General) - Patient Medical History Hx Seizures: Yes Hx Stroke: Yes - TIA (?) Hx Dementia: No Hx Asthma: No Hx of COPD: No Hx Cardiac Disorders: No Hx Congestive Heart Failure: No Hx Pacemaker: No Hx Hypertension: Yes Hx Thyroid Disease: No Hx Diabetes: Yes Hx Gastroesophageal Reflux: No Hx Renal Disease: No Hx Cancer: No Hx of HIV: No Hx Hepatitis C: No Hx MRSA: No MRSA Source:: Wound - Vaccination History Hx Tetanus, Diphtheria Vaccination: No Hx Influenza Vaccination: Yes Hx Pneumococcal Vaccination: No - Social History Hx Tobacco Use: No Hx Chewing Tobacco Use: Yes - Quit Hx Alcohol Use: Yes Hx Substance Use: No Hx Substance Use Treatment: No Hx Depression: No Hx Physical Abuse: No Hx Emotional Abuse: No Hx Suspected Abuse: No - Female History Patient : No Family Medical History - Family History Mother Family History: Unknown Living Status: Hx Family Diabetes: Yes - mom-brother Hx Family Cancer: Yes - dad-lung Hx Family;Other: SEIZURES-brother Physical Exam - Physical Exam General Appearance: Alert, Well Developed, Well Hydrated Eye Exam: bilateral normal ENT Exam: normal ENT inspection Neck: non-tender Respiratory: chest non-tender Cardiovascular/Chest: normal peripheral pulses, regular rate, rhythm, no edema Peripheral Pulses: radial,right: 2+, radial,left: 2+ Gastrointestinal/Abdominal: normal bowel sounds, non tender, soft, no organomegaly, no pulsatile mass Back Exam: normal inspection Extremities Exam: normal range of motion Mental Status: alert, oriented x 3, other systems architecture analyst Exam: normal hearing, normal speech, PERRL Coordination/Gait: normal finger to nose, normal gait DTR: 2+: Biceps, left, Biceps, right Skin Exam: normal color Progress - Progress Progress: 01/02/19 21:41 REASSESSED PATIENT, SEEMS MUCH IMPROVED. ALERT AND NORMAL. THE VOICES THAT HE HAS HAD SIMILAR EPISODES IN THE PAST. - Results/Orders Results/Orders: Laboratory Results WBC 8.2 K/mm3 (4.8-10.8) 01/02/19 19:09 RBC 4.70 M/mm3 (4.70-6.10) 01/02/19 19:09 Hgb 13.8 gm/dL (14.0-18.0) L 01/02/19 19:09 Hct 40.0 % (42.0-52.0) L 01/02/19 19:09 MCV 85.0 fl (80.0-94.0) 01/02/19 19:09 MCH 29.4 pg (27.0-31.0) 01/02/19 19:09 MCHC 34.6 g/dL (33.0-37.0) 01/02/19 19:09 RDW 14.3 % (11.5-14.5) 01/02/19 19:09 Plt Count 224 K/mm3 (130-400) 01/02/19 19:09 MPV 7.8 fl (7.40-10.4) 01/02/19 19:09 Absolute Neuts (auto) 5.40 K/uL (1.8-6.8) 01/02/19 19:09 Absolute Lymphs (auto) 2.10 K/uL (1.0-3.4) 01/02/19 19:09 Absolute Monos (auto) 0.50 K/uL (0.2-0.8) 01/02/19 19:09 Absolute Eos (auto) 0.20 K/uL (0.0-0.4) 01/02/19 19:09 Absolute Basos (auto) 0.10 K/uL (0.0-0.1) 01/02/19 19:09 Neutrophils % 65.3 % (42.0-78.0) 01/02/19 19:09 Lymphocytes % 25.9 % (20.0-50.0) 01/02/19 19:09 Monocytes % 6.0 % (2.0-9.0) 01/02/19 19:09 Eosinophils % 2.1 % (1.0-5.0) 01/02/19 19:09 Basophils % 0.7 % (0.0-2.0) 01/02/19 19:09 Sodium 139 mmol/L (135-145) 01/02/19 19:09 Potassium 3.4 mmol/L (3.6-5.0) L 01/02/19 19:09 Chloride 106 mmol/L (101-111) 01/02/19 19:09 Carbon Dioxide 24 mmol/L (21-31) 01/02/19 19:09 Anion Gap 12.4 (12-18) 01/02/19 19:09 BUN 17 mg/dL (7-18) 01/02/19 19:09 Creatinine 0.65 mg/dL (0.6-1.3) 01/02/19 19:09 BUN/Creatinine Ratio 26.2 (10-20) H 01/02/19 19:09 POC Glucose 136 mg/dL (70-105) H 01/02/19 18:50 Random Glucose 143 mg/dL (70-105) H 01/02/19 19:09 Serum Osmolality 281.6 mOsm/L (275-295) 01/02/19 19:09 Calcium 8.9 mg/dL (8.4-10.2) 01/02/19 19:09 Total Bilirubin 0.6 mg/dL (0.2-1.0) 01/02/19 19:09 AST 14 IU/L (10-42) 01/02/19 19:09 ALT 13 IU/L (10-60) 01/02/19 19:09 Alkaline Phosphatase 68 IU/L (42-121) 01/02/19 19:09 Ammonia 15 umol/L (10-35) 01/02/19 19:09 Troponin I < 0.02 ng/mL (0.01-0.05) 01/02/19 19:09 Serum Total Protein 6.9 gm/dL (6.4-8.2) 01/02/19 19:09 Albumin 3.7 g/dl (3.2-5.5) 01/02/19 19:09 Globulin 3.2 gm/dL (2.3-3.5) 01/02/19 19:09 Albumin/Globulin Ratio 1.2 (1.1-1.9) 01/02/19 19:09 Urine Color Yellow (Yellow) 01/02/19 19:40 Urine Appearance Clear (Clear) 01/02/19 19:40 Urine pH 6.0 (4.5-7.8) 01/02/19 19:40 Ur Specific [place] >= 1.030 (1.005-1.030) 01/02/19 19:40 Urine Protein Trace mg/dL 01/02/19 19:40 Urine Glucose (UA) 100 mg/dL (Negative) H 01/02/19 19:40 Urine Ketones Trace mg/dL (NEGATIVE) 01/02/19 19:40 Urine Blood Negative (Negative) 01/02/19 19:40 Urine Nitrite Negative 01/02/19 19:40 Urine Bilirubin Negative (NEGATIVE) 01/02/19 19:40 Urine Urobilinogen 1.0 mg/dL (0.2-1.0) 01/02/19 19:40 Ur Leukocyte Esterase Negative (Negative) 01/02/19 19:40 Urine RBC 0-1 /hpf 07/24/19 19:40 Urine WBC 0 /hpf 07/24/19 19:40 Ur Epithelial Cells 0-1 /hpf 01/02/19 19:40 Amorphous Sediment 1+ 01/02/19 19:40 Urine Bacteria 0 01/02/19 19:40 Urine Opiates Screen Negative ng/mL (2000) 01/02/19 19:40 Urine Barbiturates Negative ng/mL (200) 01/02/19 19:40 Ur Phencyclidine Scrn Negative ng/mL (25) 01/02/19 19:40 U Amphetamin/Meth Scrn Negative ng/mL (1000) 01/02/19 19:40 U Benzodiazepines Scrn Negative ng/mL (200) 01/02/19 19:40 U Cocaine Metab Screen Negative ng/mL (300) 01/02/19 19:40 U Cannabinoids Screen Positive ng/mL (50) H 01/02/19 19:40 Departure - Departure Clinical Impression: Confusion Time of Disposition: 21:43 Disposition: Discharge to Home or Self Care Condition: Good Departure Forms: ED Discharge - Pt. Copy, Patient Portal Self Enrollment Diet: resume usual diet Referrals: Gina Lazaro, PHOTOENGRAVING APPRENTICE [Primary Care Provider] - 1-2 Weeks Home Medications: Ambulatory Orders Aripiprazole [Abilify] 10 mg PO DAILY 03/30/15 Atorvastatin Calcium [Lipitor] 40 mg PO BEDTIME 03/30/15 Esomeprazole Magnesium [Nexium] 20 mg PO DAILY 03/30/15 Aspirin (Buffered) 325 mg [Bufferin 325 mg] 1 ea PO DAILY 05/27/17 Linagliptin [Tradjenta] 5 mg PO DAILY 05/27/17 Magnesium Chloride [Slow-Mag] 71.5 mg PO DAILY 05/27/17 Metformin HCl [Metformin HCl ER] 1,000 mg PO BID 05/27/17 Potassium Chloride [K-Tab] 10 meq PO DAILY #10 tab 09/22/17 Meclizine HCl [Antivert] 25 mg PO TID PRN 01/02/19
--- NOTE | 2019-01-02 19:20 | RAD ---
EXAM: XR Chest, 1 View CLINICAL HISTORY: 58 years old and is Male; sob TECHNIQUE: Frontal view of the chest. COMPARISON: 10/18/2018 FINDINGS: Limitations: Left lateral costophrenic angle not completely included. Lungs: Unremarkable. No consolidation. Pleural space: Unremarkable. No pneumothorax. Heart: Unremarkable. No cardiomegaly. Mediastinum: Unremarkable. Bones/joints: Unremarkable. IMPRESSION: Limited as above. No abnormality noted. Electronically signed by: Colleen Mason MD 01/02/2019 7:18 PM CDT
[2019-01-02 22:31] VITALS: BP 136/65; TEMP 97.2; O2SAT 95
== END 2019-01-02 22:25 | disposition home or self-care (01) ==
LOC: ER 18:26
DX: R41.0 Disorientation, unspecified (principal); R56.9 Unspecified convulsions; I10 Essential (primary) hypertension; E11.9 Type 2 diabetes mellitus without complications; Z86.73 Personal history of transient ischemic attack (TIA), and cerebral infarction without residual deficits; Z87.891 Personal history of nicotine dependence; Z79.899 Other long term (current) drug therapy; Z79.84 Long term (current) use of oral hypoglycemic drugs; Z79.82 Long term (current) use of aspirin

== ENCOUNTER → 2019-01-23 | Outpatient (CLI) | payer OTHER | LOC: NM 09:00 | PROVIDERS: ATTEND Nurse Practitioner Family | DX: R55 Syncope and collapse (principal) ==

== ENCOUNTER 2019-01-30 18:50 | Emergency (ER) | payer OTHER ==
--- NOTE | 2019-01-30 19:06 | ED.PDOC ---
History of Present Illness - General Chief Complaint: Neuro Symptoms/Deficits Stated Complaint: confusion for approximately 30 mins Time Seen by Provider: 01/30/19 19:02 Source: patient, RN notes reviewed, Vital Signs reviewed, EMS notes reviewed Exam Limitations: other - confusion Additional Information: 58 YEAR OLD WHITE MALE HERE FOR EVALUATION OF CONFUSION PER EMS THEY WERE CALLED FOR POSSIBLE STROKE BUT THEY WERE UNABLE TO GET ANY DETAILS SUCH TIME OF ONSET HIS SON WHO WAS AT HOME HAD TOLD HE WOKE UP CONFUSED TIME HE WENT TO SLEEP AND THE TIME HE WOKE UP ALL UNKNOWN AT THIS TIME HE HAS HAD SEIZURES TIA IN THE PAST HE ALSO HAS HISTORY OF DRUG ABUSE AND MARIJUANA ABUSE 1899 HIS CAME FROM WORK TO VISIT HE IMMEDIETELY ASKED HER WHO IS IN HER PLACE HIS SPEECH WAS CLEAR AND UNDERSTANDABLE AND NOT SLURRED - History of Present Illness Timing/Duration: unsure Severity: moderate Improving Factors: nothing Worsening Factors: nothing Associated Symptoms: denies symptoms Allergies/Adverse Reactions: Allergies NO KNOWN ALLERGY Allergy (Verified 01/30/19 19:13) Home Medications: Ambulatory Orders Aripiprazole [Abilify] 10 mg PO DAILY 03/30/15 Atorvastatin Calcium [Lipitor] 40 mg PO BEDTIME 03/30/15 Esomeprazole Magnesium [Nexium] 20 mg PO DAILY 03/30/15 Aspirin (Buffered) 325 mg [Bufferin 325 mg] 1 ea PO DAILY 05/27/17 Linagliptin [Tradjenta] 5 mg PO DAILY 05/27/17 Magnesium Chloride [Slow-Mag] 71.5 mg PO DAILY 05/27/17 Metformin HCl [Metformin HCl ER] 1,000 mg PO BID 05/27/17 Potassium Chloride [K-Tab] 10 meq PO DAILY #10 tab 09/22/17 Meclizine HCl [Antivert] 25 mg PO TID PRN 01/02/19 Review of Systems - Review of Systems Unable to Obtain Due To: condition - HE IS NOT ABLE TO SPEAK HOWEVER VERY ALERT NO FOCAL NEURO DEFICIT LIKE FACIAL DROOP FOCAL NEUROLOGICAL DEFICIT Past Medical History (General) - Patient Medical History Hx Seizures: Yes Hx Stroke: Yes - TIA (?) Hx Dementia: No Hx Asthma: No Hx of COPD: No Hx Cardiac Disorders: No Hx Congestive Heart Failure: No Hx Pacemaker: No Hx Hypertension: Yes Hx Thyroid Disease: No Hx Diabetes: Yes Hx Gastroesophageal Reflux: No Hx Renal Disease: No Hx Cancer: No Hx of HIV: No Hx Hepatitis C: No Hx MRSA: No MRSA Source:: Wound - Vaccination History Hx Tetanus, Diphtheria Vaccination: No Hx Influenza Vaccination: Yes Hx Pneumococcal Vaccination: No - Social History Hx Tobacco Use: No Hx Chewing Tobacco Use: Yes - Quit Hx Alcohol Use: Yes Hx Substance Use: No Hx Substance Use Treatment: No Hx Depression: No Hx Physical Abuse: No Hx Emotional Abuse: No Hx Suspected Abuse: No - Female History Patient : No Family Medical History - Family History Mother Family History: Unknown Living Status: Hx Family Diabetes: Yes - mom-brother Hx Family Cancer: Yes - dad-lung Hx Family;Other: SEIZURES-brother Physical Exam - Physical Exam General Appearance: Alert, Comfortable Eye Exam: bilateral normal Ears, Nose, Throat: hearing grossly normal, normal ENT inspection, normal pharynx, abnormal TM (R) Neck: non-tender, full range of motion, supple Respiratory: chest non-tender, lungs clear, normal breath sounds, no respiratory distress Cardiovascular/Chest: normal peripheral pulses, regular rate, rhythm, no edema, no gallop, no JVD, no murmur Gastrointestinal/Abdominal: normal bowel sounds, non tender, soft, no organomegaly, no pulsatile mass Back Exam: normal inspection, no CVA tenderness Extremity: normal range of motion, non-tender, normal inspection, no pedal edema, no calf tenderness Neurologic: household chores II-XII nml as tested, no motor/sensory deficits, alert, normal mood/affect, aphasia Progress - Progress Progress: 01/30/19 20:33 Laboratory Tests 01/30/19 01/30/19 01/30/19 18:40 18:40 18:40 WBC 8.5 RBC 4.84 Hgb 14.3 Hct 41.8 L MCV 86.2 MCH 29.5 MCHC 34.2 RDW 14.6 H Plt Count 232 MPV 8.1 Absolute Neuts (auto) 4.50 Absolute Lymphs (auto) 3.10 Absolute Monos (auto) 0.60 Absolute Eos (auto) 0.30 Absolute Basos (auto) 0.00 Neutrophils % 53.1 Lymphocytes % 36.4 Monocytes % 7.1 Eosinophils % 3.0 Basophils % 0.4 PT 9.9 INR 0.99 PTT (SP) 24.7 Sodium 142 Potassium 3.4 L Chloride 107 Carbon Dioxide 23 Anion Gap 15.4 BUN 20 H Creatinine 0.73 BUN/Creatinine Ratio 27.4 H Random Glucose 145 H Serum Osmolality 288.3 Calcium 9.2 Total Bilirubin 0.9 AST 18 ALT 17 Alkaline Phosphatase 77 Serum Total Protein 7.4 Albumin 4.0 Globulin 3.4 Albumin/Globulin Ratio 1.[address] data reviewed All Normal Pt is back to his base line Departure - Departure Clinical Impression: Confusion state, Type II diabetes mellitus, Seizure disorder, Marijuana smoker Time of Disposition: 20:34 Disposition: Discharge to Home or Self Care Departure Forms: ED Discharge - Pt. Copy, Patient Portal Self Enrollment Referrals: Gina Lazaro POWER CUTTING MACHINE OPERATOR [Primary Care Provider] - 1-2 Weeks Home Medications: Ambulatory Orders Aripiprazole [Abilify] 10 mg PO DAILY 03/30/15 Atorvastatin Calcium [Lipitor] 40 mg PO BEDTIME 03/30/15 Esomeprazole Magnesium [Nexium] 20 mg PO DAILY 03/30/15 Aspirin (Buffered) 325 mg [Bufferin 325 mg] 1 ea PO DAILY 05/27/17 Linagliptin [Tradjenta] 5 mg PO DAILY 05/27/17 Magnesium Chloride [Slow-Mag] 71.5 mg PO DAILY 05/27/17 Metformin HCl [Metformin HCl ER] 1,000 mg PO BID 05/27/17 Potassium Chloride [K-Tab] 10 meq PO DAILY #10 tab 09/22/17 Meclizine HCl [Antivert] 25 mg PO TID PRN 01/02/19 Comments: PLEASE FOLLOW UP WITH YOUR MD
--- NOTE | 2019-01-30 19:41 | CT ---
PROCEDURE: Head CLINICAL HISTORY: 58 years Male TIA APHASIA CONFUSION TECHNIQUE: Contiguous axial CT images obtained through the brain without IV contrast. Coronal and sagittal reformats also provided. This CT exam was performed according to our departmental dose-optimization program, which includes one or more of the following dose reduction techniques: automated exposure control, adjustment of the mA and/or kV according to patient size, and/or use of iterative reconstruction technique. COMPARISON: Comparison is made to the prior examination dated 10/18/2018. FINDINGS: There is no intracranial hemorrhage, extraaxial collection, or acute transcortical infarction. The ventricles are normal in size and contour without mass-effect or midline shift. Osseous structures are normal. Previously seen severe paranasal sinusitis has resolved. There is trace bilateral mastoiditis dependently. Middle ear structures appear clear bilaterally. IMPRESSION: No acute intracranial abnormality. Electronically signed by: Lovely Tidwell MD 01/30/2019 7:39 PM CDT
[2019-01-30 20:42] VITALS: BP 166/93; TEMP 97.1; O2SAT 94
== END 2019-01-30 20:38 | disposition home or self-care (01) ==
LOC: ER 18:50
DX: R41.0 Disorientation, unspecified (principal); E11.9 Type 2 diabetes mellitus without complications; G40.909 Epilepsy, unspecified, not intractable, without status epilepticus; F12.90 Cannabis use, unspecified, uncomplicated; I10 Essential (primary) hypertension; Z87.891 Personal history of nicotine dependence; Z79.82 Long term (current) use of aspirin; Z79.899 Other long term (current) drug therapy; Z79.84 Long term (current) use of oral hypoglycemic drugs

== ENCOUNTER 2019-02-23 13:11 | Emergency (ER) | payer OTHER ==
[2019-02-23] MEDS ORDERED: SODIUM CHLORIDE 0.9% (FLUSH) 10 ML SYG IV PRN (13:31)
--- NOTE | 2019-02-23 13:42 | ED.PDOC ---
History of Present Illness - General Chief Complaint: Neuro Symptoms/Deficits Stated Complaint: Altered mental status Time Seen by Provider: 02/23/19 13:31 Source: RN notes reviewed, Vital Signs reviewed, family, EMS - EMS reports left pupil is sluggish. Normal ekg., old records Exam Limitations: other - pt will only say he has to pee. He cannot answer any of my questions. All hx is from . - History of Present Illness Initial Comments: Pt presents from home with . Per the patient was normal yesterday. He was asleep when she got home from work and she got into bed with him. She awoke at noon to find him confused. denies fever/chills. Unable to obtain any other ROS secondary to his AMS. Timing/Duration: 1/2 hour Severity: severe Improving Factors: nothing Worsening Factors: nothing Associated Symptoms: confusion Allergies/Adverse Reactions: Allergies NO KNOWN ALLERGY Allergy (Verified 01/30/19 19:13) Home Medications: Ambulatory Orders Aripiprazole [Abilify] 10 mg PO DAILY 03/30/15 Atorvastatin Calcium [Lipitor] 40 mg PO BEDTIME 03/30/15 Esomeprazole Magnesium [Nexium] 20 mg PO DAILY 03/30/15 Aspirin (Buffered) 325 mg [Bufferin 325 mg] 1 ea PO DAILY 05/27/17 Linagliptin [Tradjenta] 5 mg PO DAILY 05/27/17 Magnesium Chloride [Slow-Mag] 71.5 mg PO DAILY 05/27/17 Metformin HCl [Metformin HCl ER] 1,000 mg PO BID 05/27/17 Potassium Chloride [K-Tab] 10 meq PO DAILY #10 tab 09/22/17 Meclizine HCl [Antivert] 25 mg PO TID PRN 01/02/19 Review of Systems - Review of Systems Review of Systems: 02/23/19 13:43 unable to obtain a complete ROS secondary to altered mental status and confusion of the patient. Constitutional: Denies: chills, fever Unable to Obtain Due To: condition - AMS and confusion Past Medical History (General) - Patient Medical History Hx Seizures: Yes Hx Stroke: Yes - TIA (?) Hx Dementia: No Hx Asthma: No Hx of COPD: No Hx Cardiac Disorders: No Hx Congestive Heart Failure: No Hx Pacemaker: No Hx Hypertension: Yes Hx Thyroid Disease: No Hx Diabetes: Yes Hx Gastroesophageal Reflux: No Hx Renal Disease: No Hx Cancer: No Hx of HIV: No Hx Hepatitis C: No Hx MRSA: No MRSA Source:: Wound - Vaccination History Hx Tetanus, Diphtheria Vaccination: No Hx Influenza Vaccination: Yes Hx Pneumococcal Vaccination: No - Social History Hx Tobacco Use: No Hx Chewing Tobacco Use: Yes - Quit Hx Alcohol Use: Yes Hx Substance Use: No Hx Substance Use Treatment: No Hx Depression: No Hx Physical Abuse: No Hx Emotional Abuse: No Hx Suspected Abuse: No - Female History Patient : No Family Medical History - Family History Mother Family History: Unknown Living Status: Hx Family Diabetes: Yes - mom-brother Hx Family Cancer: Yes - dad-lung Hx Family;Other: SEIZURES-brother Physical Exam - Physical Exam General Appearance: Agitated, Alert, Obvious distress, Unkempt, Well Developed, Well Hydrated, Well Nourished Eye Exam: bilateral normal ENT Exam: normal ENT inspection, hearing grossly normal, pharynx normal Neck: non-tender, full range of motion, supple, normal inspection Respiratory: chest non-tender, lungs clear, normal breath sounds, no respiratory distress, no accessory muscle use Cardiovascular/Chest: normal peripheral pulses, regular rate, rhythm, no edema, no gallop, no JVD, no murmur Peripheral Pulses: radial,right: 2+, radial,left: 2+ Gastrointestinal/Abdominal: normal bowel sounds, non tender, soft, other - pt has urinated and defecated on himself. Back Exam: normal inspection, no CVA tenderness Extremities Exam: non-tender, normal range of motion, no evidence of injury, no edema Mental Status: alert, other - only oriented to self. budget specialist Exam: normal hearing, normal speech - Pt repeats that he has to pee. Motor/Sensory: other - pt is unsteady on his feet. He is unable to participate in neuro exam. Skin Exam: normal color, warm/dry Progress - Progress Progress: 02/23/19 15:21 Per pt's he is back to his baseline. Pt is A&Ox4. He remembers me talking to him earlier but was unable to answer my questions. Plan d/c home with . She knows to bring him back if the spell returns. They have a f/u appointment with the neurologist on Monday and they are adamant they will keep this appointment. I discussed the plan of care with the patient and his and they voice understanding and agreement with the plan of care. Duncan Conley M.D. #[id number] - Results/Orders Results/Orders: 02/23/19 13:31 Sodium Chloride 0.9% (Flush) [Saline Flush Syringe] 10 ml IV PRN PRN 02/23/19 13:32 IV Care:Saline Lock per Protoc QSHIFT Telemetry .ONCE 02/23/19 13:45 EKG STAT Laboratory Results - last 24 hr 02/23/19 02/23/19 02/23/19 13:34 13:54 13:54 WBC 7.2 RBC 4.83 Hgb 14.0 Hct 41.3 L MCV 85.6 MCH 29.1 MCHC 34.0 RDW 14.4 Plt Count 204 MPV 8.2 Absolute Neuts (auto) 4.40 Absolute Lymphs (auto) 2.00 Absolute Monos (auto) 0.50 Absolute Eos (auto) 0.20 Absolute Basos (auto) 0.00 Neutrophils % 61.0 Lymphocytes % 28.0 Monocytes % 7.6 Eosinophils % 2.9 Basophils % 0.5 Sodium 140 Potassium 3.7 Chloride 102 Carbon Dioxide 27 Anion Gap 14.7 BUN 11 Creatinine 0.54 L BUN/Creatinine Ratio 20.4 H POC Glucose Random Glucose 184 H Serum Osmolality 283.6 Calcium 9.1 Total Bilirubin 0.5 AST 16 ALT 20 Alkaline Phosphatase 73 Creatine Kinase 53 CK-MB (CK-2) 0.9 CK-MB (CK-2) % Not Reportable Troponin I < 0.02 Serum Total Protein 6.8 Albumin 3.9 Globulin 2.9 Albumin/Globulin Ratio 1.3 Urine Color Urine Appearance Urine pH Ur Specific [place] Urine Protein Urine Glucose (UA) Urine Ketones Urine Blood Urine Nitrite Urine Bilirubin Urine Urobilinogen Ur Leukocyte Esterase Urine RBC Urine WBC Ur Epithelial Cells Urine Bacteria Urine Opiates Screen Negative Urine Barbiturates Negative Ur Phencyclidine Scrn Negative U Amphetamin/Meth Scrn Negative U Benzodiazepines Scrn Negative U Cocaine Metab Screen Negative U Cannabinoids Screen Positive H Ethyl Alcohol 02/23/19 02/23/19 02/23/19 13:54 13:54 14:14 WBC RBC Hgb Hct MCV MCH MCHC RDW Plt Count MPV Absolute Neuts (auto) Absolute Lymphs (auto) Absolute Monos (auto) Absolute Eos (auto) Absolute Basos (auto) Neutrophils % Lymphocytes % Monocytes % Eosinophils % Basophils % Sodium Potassium Chloride Carbon Dioxide Anion Gap BUN Creatinine BUN/Creatinine Ratio POC Glucose 186 H Random Glucose Serum Osmolality Calcium Total Bilirubin AST ALT Alkaline Phosphatase Creatine Kinase CK-MB (CK-2) CK-MB (CK-2) % Troponin I Serum Total Protein Albumin Globulin Albumin/Globulin Ratio Urine Color Yellow Urine Appearance Clear Urine pH 7.5 Ur Specific [place] 1.015 Urine Protein Negative Urine Glucose (UA) Negative Urine Ketones Negative Urine Blood Negative Urine Nitrite Negative Urine Bilirubin Negative Urine Urobilinogen 0.2 Ur Leukocyte Esterase Negative Urine RBC 0 Urine WBC 0 Ur Epithelial Cells 0 Urine Bacteria 0 Urine Opiates Screen Urine Barbiturates Ur Phencyclidine Scrn U Amphetamin/Meth Scrn U Benzodiazepines Scrn U Cocaine Metab Screen U Cannabinoids Screen Ethyl Alcohol < 5.40 CXR-No acute disease CT Head-degraded by motion artifact and streak artifact. There is again noted volume loss but no new acute disease. - EKG/XRAY/CT Comments: NSR@90bpm, LAD, incomplete RBBB, septal infarct age indeterminate, abnl ekg Departure - Departure Clinical Impression: Altered mental status Qualifiers: Altered mental status type: transient alteration of awareness Qualified Code(s): R40.4 - Transient alteration of awareness Disposition: Discharge to Home or Self Care Departure Forms: ED Discharge - Pt. Copy, Patient Portal Self Enrollment Instructions: DI for Altered Mental Status Referrals: Gina Lazaro, [facility] [Primary Care Provider] - 1-2 Weeks Home Medications: Ambulatory Orders Aripiprazole [Abilify] 10 mg PO DAILY 03/30/15 Atorvastatin Calcium [Lipitor] 40 mg PO BEDTIME 03/30/15 Esomeprazole Magnesium [Nexium] 20 mg PO DAILY 03/30/15 Aspirin (Buffered) 325 mg [Bufferin 325 mg] 1 ea PO DAILY 05/27/17 Linagliptin [Tradjenta] 5 mg PO DAILY 05/27/17 Magnesium Chloride [Slow-Mag] 71.5 mg PO DAILY 05/27/17 Metformin HCl [Metformin HCl ER] 1,000 mg PO BID 05/27/17 Potassium Chloride [K-Tab] 10 meq PO DAILY #10 tab 09/22/17 Meclizine HCl [Antivert] 25 mg PO TID PRN 01/02/19
--- NOTE | 2019-02-23 14:42 | RAD ---
EXAM DESCRIPTION: Chest,1 View CLINICAL HISTORY: 58 years Male, Confusion COMPARISON: January 02, 2019. FINDINGS: Mild prominence of the cardiomediastinal silhouette and central vasculature likely related to portable technique. No focal consolidation, pneumothorax or pleural effusion. Osseous structures unremarkable. IMPRESSION: No acute findings. Electronically signed by: Bird Duron MD 02/23/2019 2:40 PM CDT
--- NOTE | 2019-02-23 14:50 | CT ---
EXAM DESCRIPTION: Head CLINICAL HISTORY: 58 years Male confusion TECHNIQUE: Noncontrast axial CT head with coronal and sagittal reformats. All CT scans at this facility use dose modulation, iterative reconstruction, and/or weight based dosing when appropriate to reduce radiation dose to as low as reasonably achievable. COMPARISON: January 30, 2019. FINDINGS: Study is degraded by motion, streak and beam hardening artifacts. Diffuse parenchymal volume loss. No gross obvious intracranial hemorrhage. No midline shift shift, mass, mass effect, hydrocephalus or extra-axial fluid collection. Nondiagnostic evaluation for subtle monroe-white differentiation abnormality due to artifacts. Orbits are normal. Paranasal sinuses and mastoid air cells are clear. Osseous structures and soft tissues are unremarkable. IMPRESSION: Study is degraded by motion, streak and beam hardening artifacts. No gross obvious intracranial hemorrhage. Nondiagnostic evaluation for subtle monroe-white differentiation abnormality due to artifacts. Electronically signed by: Bird Duron MD 02/23/2019 2:49 PM CDT
[2019-02-23 15:13] VITALS: BP 128/59; O2SAT 98
[2019-02-23 15:30] VITALS: TEMP 97.2
== END 2019-02-23 15:28 | disposition home or self-care (01) ==
LOC: ER 13:11
DX: R40.4 Transient alteration of awareness (principal); I45.10 Unspecified right bundle-branch block; R94.31 Abnormal electrocardiogram [ECG] [EKG]; R56.9 Unspecified convulsions; I10 Essential (primary) hypertension; E11.9 Type 2 diabetes mellitus without complications; Z87.891 Personal history of nicotine dependence; Z86.73 Personal history of transient ischemic attack (TIA), and cerebral infarction without residual deficits; Z79.899 Other long term (current) drug therapy

== ENCOUNTER 2019-04-10 16:33 | Emergency (ER) | payer OTHER ==
[2019-04-10 16:46] VITALS: TEMP 98.3
[2019-04-10] MEDS ORDERED: ASPIRIN TABLET 325 MG TAB PO ONE (17:03)
[2019-04-10] MEDS ORDERED: SODIUM CHLORIDE 0.9% (FLUSH) 10 ML SYG IV PRN (17:03)
--- NOTE | 2019-04-10 17:11 | ED.PDOC ---
History of Present Illness - General Chief Complaint: Neuro Symptoms/Deficits Stated Complaint: Change in mental status Time Seen by Provider: 04/10/19 16:58 Source: patient, RN notes reviewed, Vital Signs reviewed, EMS notes reviewed, family, EMS - History of Present Illness Initial Comments: pt is a 58 yo male who presents to ED via EMS for jerking and AMS. states he has these episodes once a month for the past 2 years. He has been seen by PCP and neuologist with EEG, MRI and other testing that has been normal and no cause has been found. Today, he awoke from sleep at 1530 and went to the bathroom. states he was confused and had jerking movements off and on since 1530 today. Pt denies CARTWRIGHT, CP, NVD, fever, neck stiffness. Allergies/Adverse Reactions: Allergies NO KNOWN ALLERGY Allergy (Verified 01/30/19 19:13) Home Medications: Ambulatory Orders Aripiprazole [Abilify] 10 mg PO DAILY 03/30/15 Atorvastatin Calcium [Lipitor] 40 mg PO BEDTIME 03/30/15 Esomeprazole Magnesium [Nexium] 20 mg PO DAILY 03/30/15 Aspirin (Buffered) 325 mg [Bufferin 325 mg] 1 ea PO DAILY 05/27/17 Linagliptin [Tradjenta] 5 mg PO DAILY 05/27/17 Magnesium Chloride [Slow-Mag] 71.5 mg PO DAILY 05/27/17 Metformin HCl [Metformin HCl ER] 1,000 mg PO BID 05/27/17 Potassium Chloride [K-Tab] 10 meq PO DAILY #10 tab 09/22/17 Meclizine HCl [Antivert] 25 mg PO TID PRN 01/02/19 Review of Systems - Review of Systems Constitutional: Denies: chills, fever, weakness EENTM: Denies: blurred vision, ear pain, nose congestion, throat pain Respiratory: Denies: cough, short of breath, wheezing Cardiology: Denies: chest pain, palpitations, syncope Gastrointestinal/Abdominal: Denies: abdominal pain, diarrhea, nausea, vomiting Musculoskeletal: Denies: back pain, muscle pain Skin: Denies: rash Neurological: States: other - confusion. Denies: headache, paresthesia, weakness All other Systems: Reviewed and Negative Past Medical History (General) - Patient Medical History Hx Seizures: Yes Hx Stroke: No Hx Dementia: No Hx Asthma: No Hx of COPD: No Hx Cardiac Disorders: Yes - Dyslipidemia Hx Congestive Heart Failure: No Hx Pacemaker: No Hx Hypertension: Yes Hx Thyroid Disease: No Hx Diabetes: Yes Hx Gastroesophageal Reflux: Yes Hx Renal Disease: No Hx Cancer: No Hx of HIV: No Hx Hepatitis C: No Hx MRSA: No MRSA Source:: Wound - Vaccination History Hx Tetanus, Diphtheria Vaccination: No Hx Influenza Vaccination: Yes Hx Pneumococcal Vaccination: No - Social History Hx Tobacco Use: Yes Hx Chewing Tobacco Use: Yes - Quit Hx Alcohol Use: Yes Hx Substance Use: Yes - Marijuana Hx Substance Use Treatment: No Hx Depression: No Hx Physical Abuse: No Hx Emotional Abuse: No Hx Suspected Abuse: No - Female History Patient : No Family Medical History - Family History Mother Family History: Unknown Living Status: Hx Family Diabetes: Yes - mom-brother Hx Family Cancer: Yes - dad-lung Hx Family;Other: SEIZURES-brother Physical Exam - Physical Exam General Appearance: Alert, No apparent distress, Other - Pt stares off, but locates me by voice. Slow to respond, but does answer questions appropriately Eye Exam: bilateral normal - PERRLA ENT Exam: pharynx normal, other - moist mucous membranes Neck: non-tender, full range of motion, supple, trachea midline Respiratory: chest non-tender, lungs clear, normal breath sounds, no accessory muscle use Cardiovascular/Chest: normal peripheral pulses, regular rate, rhythm, no edema, no murmur Gastrointestinal/Abdominal: non tender, soft, no pulsatile mass Back Exam: normal inspection, no CVA tenderness, no vertebral tenderness Mental Status: alert, other - slow to respond. clear speech. Oriented x 3. strength is 5/5 x 4. 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 Pt is alert and conversational. He can answer all questions and name simple objects easily. Speech is clear and coherent. Strength is 5/5 x 4 with no drift. A&O x 4. CN intact. NIHSS os 0. pt and feel that he is back to baseline and feel comfortable going home. He has had these episodes for the past 2 years. Will DC home and f/u with PCP and his neurologist for continued evaluation. SRP given. - Results/Orders Results/Orders: TECHNIQUE: AP portable chest FINDINGS: The lungs are clear. There is no infiltrate or effusion. The heart is normal size. IMPRESSION: Normal portable chest TECHNIQUE: Axial computed tomography images of the head/brain without intravenous contrast. Sagittal and coronal reformatted images were created and reviewed. This CT exam was performed using one or more of the following dose reduction techniques: automated exposure control, adjustment of the mA and/or kV according to patient size, and/or use of iterative reconstruction technique. COMPARISON: No relevant prior studies available. FINDINGS: Limitations: None. Brain: Unremarkable. No hemorrhage. No significant white matter disease. No rosmery ma. Ventricles: Unremarkable. No ventriculomegaly. Bones/joints: Unremarkable. No acute fracture. Soft tissues: Unremarkable. Sinuses: Unremarkable as visualized. No acute sinusitis. Mastoid air cells: Mild chronic bilateral mastoid thickening noted. No air-fluid level. IMPRESSION: Chronic changes as above. No acute disease. Laboratory Results - last 24 hr 04/10/19 04/10/19 04/10/19 16:35 16:35 16:35 WBC 7.0 RBC 4.78 Hgb 14.1 Hct 41.4 L MCV 86.5 MCH 29.6 MCHC 34.2 RDW 14.2 Plt Count 265 MPV 8.2 Absolute Neuts (auto) 3.50 Absolute Lymphs (auto) 2.70 Absolute Monos (auto) 0.50 Absolute Eos (auto) 0.30 Absolute Basos (auto) 0.00 Neutrophils % 50.7 Lymphocytes % 38.1 Monocytes % 6.6 Eosinophils % 4.0 Basophils % 0.6 PT 9.6 INR 0.96 PTT (SP) 24.9 Sodium 140 Potassium 3.8 Chloride 104 Carbon Dioxide 26 Anion Gap 13.8 BUN 14 Creatinine 0.72 BUN/Creatinine Ratio 19.4 Random Glucose 136 H Serum Osmolality 282.0 Calcium 9.1 Total Bilirubin 0.7 AST 22 ALT 26 Alkaline Phosphatase 73 Creatine Kinase 74 CK-MB (CK-2) 1.1 CK-MB (CK-2) % Not Reportable Troponin I < 0.02 Serum Total Protein 7.3 Albumin 4.0 Globulin 3.3 Albumin/Globulin Ratio 1.2 Urine Color Urine Appearance Urine pH Ur Specific [place] Urine Protein Urine Glucose (UA) Urine Ketones Urine Blood Urine Nitrite Urine Bilirubin Urine Urobilinogen Ur Leukocyte Esterase Urine RBC Urine WBC Ur Epithelial Cells Urine Bacteria Urine Opiates Screen Urine Barbiturates Ur Phencyclidine Scrn U Amphetamin/Meth Scrn U Benzodiazepines Scrn U Cocaine Metab Screen U Cannabinoids Screen 04/10/19 04/10/19 17:35 17:35 WBC RBC Hgb Hct MCV MCH MCHC RDW Plt Count MPV Absolute Neuts (auto) Absolute Lymphs (auto) Absolute Monos (auto) Absolute Eos (auto) Absolute Basos (auto) Neutrophils % Lymphocytes % Monocytes % Eosinophils % Basophils % PT INR PTT (SP) Sodium Potassium Chloride Carbon Dioxide Anion Gap BUN Creatinine BUN/Creatinine Ratio Random Glucose Serum Osmolality Calcium Total Bilirubin AST ALT Alkaline Phosphatase Creatine Kinase CK-MB (CK-2) CK-MB (CK-2) % Troponin I Serum Total Protein Albumin Globulin Albumin/Globulin Ratio Urine Color Yellow Urine Appearance Clear Urine pH 7.5 Ur Specific [place] 1.015 Urine Protein Negative Urine Glucose (UA) Negative Urine Ketones Negative Urine Blood Negative Urine Nitrite Negative Urine Bilirubin Negative Urine Urobilinogen 0.2 Ur Leukocyte Esterase Negative Urine RBC 0 Urine WBC 0 Ur Epithelial Cells 0 Urine Bacteria 0 Urine Opiates Screen Negative Urine Barbiturates Negative Ur Phencyclidine Scrn Negative U Amphetamin/Meth Scrn Negative U Benzodiazepines Scrn Negative U Cocaine Metab Screen Negative U Cannabinoids Screen Positive H - EKG/XRAY/CT EKG: Sinus - rate 75, nonspecific ST T wave Chg Comments: nml intervals Departure - Departure Clinical Impression: Tremor Altered mental state Qualifiers: Altered mental status type: transient alteration of awareness Qualified Code(s): R40.4 - Transient alteration of awareness Hypertension Qualifiers: Hypertension type: essential hypertension Qualified Code(s): I10 - Essential (primary) hypertension Time of Disposition: 18:37 Disposition: Discharge to Home or Self Care Condition: Good Departure Forms: ED Discharge - Pt. Copy, Patient Portal Self Enrollment Instructions: DI for Altered Mental Status Referrals: Gina Lazaro NP [Primary Care Provider] - 1-2 Weeks Home Medications: Ambulatory Orders Aripiprazole [Abilify] 10 mg PO DAILY 03/30/15 Atorvastatin Calcium [Lipitor] 40 mg PO BEDTIME 03/30/15 Esomeprazole Magnesium [Nexium] 20 mg PO DAILY 03/30/15 Aspirin (Buffered) 325 mg [Bufferin 325 mg] 1 ea PO DAILY 05/27/17 Linagliptin [Tradjenta] 5 mg PO DAILY 05/27/17 Magnesium Chloride [Slow-Mag] 71.5 mg PO DAILY 05/27/17 Metformin HCl [Metformin HCl ER] 1,000 mg PO BID 05/27/17 Potassium Chloride [K-Tab] 10 meq PO DAILY #10 tab 09/22/17 Meclizine HCl [Antivert] 25 mg PO TID PRN 01/02/19 Comments: Follow up with your PCP and neurologist within 1 week for continued evaluation of these episodes.
--- NOTE | 2019-04-10 17:37 | RAD ---
EXAM DESCRIPTION: Chest,1 View CLINICAL HISTORY: altered mental state COMPARISON: 23 February 2019 TECHNIQUE: AP portable chest FINDINGS: The lungs are clear. There is no infiltrate or effusion. The heart is normal size. IMPRESSION: Normal portable chest Electronically signed by: Dax Read MD 04/10/2019 5:36 PM CDT
--- NOTE | 2019-04-10 17:45 | CT ---
EXAM: CT Head Without Intravenous Contrast CLINICAL HISTORY: AMS TECHNIQUE: Axial computed tomography images of the head/brain without intravenous contrast. Sagittal and coronal reformatted images were created and reviewed. This CT exam was performed using one or more of the following dose reduction techniques: automated exposure control, adjustment of the mA and/or kV according to patient size, and/or use of iterative reconstruction technique. COMPARISON: No relevant prior studies available. FINDINGS: Limitations: None. Brain: Unremarkable. No hemorrhage. No significant white matter disease. No edema. Ventricles: Unremarkable. No ventriculomegaly. Bones/joints: Unremarkable. No acute fracture. Soft tissues: Unremarkable. Sinuses: Unremarkable as visualized. No acute sinusitis. Mastoid air cells: Mild chronic bilateral mastoid thickening noted. No air-fluid level. IMPRESSION: Chronic changes as above. No acute disease. Electronically signed by: Colleen Mason MD 04/10/2019 5:43 PM CDT
[2019-04-10 18:30] VITALS: BP 159/82; O2SAT 98
== END 2019-04-10 18:50 | disposition home or self-care (01) ==
LOC: ER 16:33
DX: R40.4 Transient alteration of awareness (principal); I10 Essential (primary) hypertension; R25.1 Tremor, unspecified; R56.9 Unspecified convulsions; E78.5 Hyperlipidemia, unspecified; E11.9 Type 2 diabetes mellitus without complications; K21.9 Gastro-esophageal reflux disease without esophagitis; Z87.891 Personal history of nicotine dependence; Z79.84 Long term (current) use of oral hypoglycemic drugs; Z79.82 Long term (current) use of aspirin; Z79.899 Other long term (current) drug therapy

== ENCOUNTER 2019-06-05 14:41 | Emergency (ER) | payer OTHER ==
[2019-06-05] MEDS ORDERED: SODIUM CHLORIDE 0.9% (FLUSH) 10 ML SYG IV PRN (14:59)
[2019-06-05] MEDS ORDERED: SODIUM CHLORIDE 0.9% 1000ML 1,000 ML IVS ONE (15:01)
--- NOTE | 2019-06-05 15:07 | ED.PDOC ---
History of Present Illness - General Chief Complaint: Neuro Symptoms/Deficits Time Seen by Provider: 06/05/19 14:59 Source: patient, family - History of Present Illness Initial Comments: 58yo M presents for AMS, possible seizure today. Per , the patient had an episode today where he became confused, shaky and less responsive. The event lasted several minutes. The patient is now mostly normalized. Events occur in the context of similar events over the past 3 years. Symptoms were infrequent at first, but now seem to occur monthly. The patient is followed by a neurologist (Dr. Rodriguez in [place]). He has had MRI and CT and a multi-day EEG. The cause of his symptoms remain unclear and the patient has not yet been placed on medication. The patient has had recent URI symptoms and cough. No fever. He does not drink ETOH consistently. Concedes that he smokes MJ. No other illicit drug use. No other reported issues. Allergies/Adverse Reactions: Allergies NO KNOWN ALLERGY Allergy (Verified 01/30/19 19:13) Home Medications: Ambulatory Orders Aripiprazole [Abilify] 10 mg PO DAILY 03/30/15 Atorvastatin Calcium [Lipitor] 40 mg PO BEDTIME 03/30/15 Esomeprazole Magnesium [Nexium] 20 mg PO DAILY 03/30/15 Aspirin (Buffered) 325 mg [Bufferin 325 mg] 1 ea PO DAILY 05/27/17 Linagliptin [Tradjenta] 5 mg PO DAILY 05/27/17 Magnesium Chloride [Slow-Mag] 71.5 mg PO DAILY 05/27/17 Metformin HCl [Metformin HCl ER] 1,000 mg PO BID 05/27/17 Potassium Chloride [K-Tab] 10 meq PO DAILY #10 tab 09/22/17 Meclizine HCl [Antivert] 25 mg PO TID PRN 01/02/19 Review of Systems - Review of Systems Constitutional: Denies: chills, fever EENTM: States: nose congestion. Denies: throat pain Respiratory: States: cough. Denies: short of breath, wheezing Cardiology: Denies: edema, syncope Gastrointestinal/Abdominal: Denies: diarrhea, nausea, vomiting Genitourinary: States: other - No incontinence.. Denies: dysuria, frequency Musculoskeletal: Denies: back pain, muscle pain, neck pain Neurological: States: other - Confusion, shaking extremities/tremors. No LOC.. Denies: headache, numbness, weakness Endocrine: States: no symptoms reported Hematologic/Lymphatic: States: no symptoms reported Past Medical History (General) - Patient Medical History Hx Seizures: Yes Hx Stroke: No Hx Dementia: No Hx Asthma: No Hx of COPD: No Hx Cardiac Disorders: Yes - Dyslipidemia Hx Congestive Heart Failure: No Hx Pacemaker: No Hx Hypertension: Yes Hx Thyroid Disease: No Hx Diabetes: Yes Hx Gastroesophageal Reflux: Yes Hx Renal Disease: No Hx Cancer: No Hx of HIV: No Hx Hepatitis C: No Hx MRSA: No MRSA Source:: Wound - Vaccination History Hx Tetanus, Diphtheria Vaccination: No Hx Influenza Vaccination: Yes Hx Pneumococcal Vaccination: No - Social History Hx Tobacco Use: Yes Hx Chewing Tobacco Use: Yes - Quit Hx Alcohol Use: Yes Hx Substance Use: Yes - Marijuana Hx Substance Use Treatment: No Hx Depression: No Hx Physical Abuse: No Hx Emotional Abuse: No Hx Suspected Abuse: No - Female History Patient : No Family Medical History - Family History Mother Family History: Unknown Living Status: Hx Family Diabetes: Yes - mom-brother Hx Family Cancer: Yes - dad-lung Hx Family;Other: SEIZURES-brother Physical Exam - Physical Exam General Appearance: Alert, No apparent distress, Well Developed Eye Exam: bilateral normal ENT Exam: pharynx normal, nasal congestion Neck: non-tender, full range of motion, supple Respiratory: lungs clear, no respiratory distress, other - Cough, intermittent, dry. Cardiovascular/Chest: normal peripheral pulses, regular rate, rhythm, no edema Gastrointestinal/Abdominal: non tender, soft, other - No rebound, guarding or distention. Back Exam: normal inspection, no vertebral tenderness Extremities Exam: non-tender, normal range of motion, no evidence of injury Mental Status: alert, oriented x 3 spare fixer Exam: normal speech, PERRL, other - No facial asymmetry. Coordination/Gait: normal gait, other - Normal coordination. Motor/Sensory: no motor deficit, no sensory deficit, no pronator drift Skin Exam: normal color, warm/dry Progress - Progress Progress: DDX: Seizure, AMS, occult neurologic disease, TIA/CVA, infection, substance use, dehydration, lyte disorder, URI, pneumonia, ACS. 06/05/19 15:07 Discussed the option of CT head. The patient has had prior brain imaging under similar circustances without acute finding. There was no LOC or trauma. The patient and elect to defer imaging at this time. 06/05/19 16:29 The patient feels improved. He is at his normal mental status per . They are currently under the care of a neurologist and have received extensive workup including a multi-day outpatient EEG. We discussed the r/b of admission at length and the patient and prefer discharge with plan for follow up with their neurologist. I offerer to contact their neurologist today, but they requested that I hold off and state they will call him tomorrow. The patient has no acute findings in relation to his URI symptoms and suspect a viral condition that is well tolerated. Results discussed at length. I reviewed return warnings. All questions answered. 06/05/19 16:37 [id number] 06/05/19 16:38 - Results/Orders Results/Orders: 06/05/19 14:59 IV Care:Saline Lock per Protoc QSHIFT Telemetry .ONCE Sodium Chloride 0.9% (Flush) [Saline Flush Syringe] 10 ml IV PRN PRN 06/05/19 15:00 EKG STAT Laboratory Results - last 24 hr 06/05/19 06/05/19 06/05/19 15:27 15:27 15:27 WBC 6.3 RBC 4.68 L Hgb 13.5 L Hct 40.3 L MCV 86.1 MCH 28.9 MCHC 33.6 RDW 13.4 Plt Count 278 MPV 7.7 Absolute Neuts (auto) 4.30 Absolute Lymphs (auto) 1.30 Absolute Monos (auto) 0.50 Absolute Eos (auto) 0.10 Absolute Basos (auto) 0.10 Neutrophils % 68.4 Lymphocytes % 19.9 L Monocytes % 7.6 Eosinophils % 2.4 Basophils % 1.7 PT 9.7 INR 0.97 Sodium 137 Potassium 3.8 Chloride 101 Carbon Dioxide 28 Anion Gap 11.8 L BUN 14 Creatinine 0.71 BUN/Creatinine Ratio 19.7 Random Glucose 247 H Serum Osmolality 282.5 Calcium 9.1 Total Bilirubin 0.7 AST 13 ALT 18 Alkaline Phosphatase 91 Troponin I Serum Total Protein 6.9 Albumin 3.7 Globulin 3.2 Albumin/Globulin Ratio 1.2 06/05/19 15:27 WBC RBC Hgb Hct MCV MCH MCHC RDW Plt Count MPV Absolute Neuts (auto) Absolute Lymphs (auto) Absolute Monos (auto) Absolute Eos (auto) Absolute Basos (auto) Neutrophils % Lymphocytes % Monocytes % Eosinophils % Basophils % PT INR Sodium Potassium Chloride Carbon Dioxide Anion Gap BUN Creatinine BUN/Creatinine Ratio Random Glucose Serum Osmolality Calcium Total Bilirubin AST ALT Alkaline Phosphatase Troponin I < 0.02 Serum Total Protein Albumin Globulin Albumin/Globulin Ratio - EKG/XRAY/CT Comments: EKG 3:15 PM: Sinus 76. Nl axis, Nl intervals. No ST segment elevation. XRAY: chest - No acute findings. See formal read. Departure - Departure Clinical Impression: Transient alteration of awareness, Tremor Upper respiratory infection Qualifiers: URI type: unspecified viral URI Qualified Code(s): J06.9 - Acute upper respiratory infection, unspecified Time of Disposition: 16:18 Disposition: Discharge to Home or Self Care Condition: Good Departure Forms: ED Discharge - Pt. Copy, Patient Portal Self Enrollment Instructions: DI for Altered Mental Status, Viral Upper Respiratory Infection, Adult (DC), Seizures, Adult (DC) Referrals: Gina Lazaro FUNNEL SETTER [Primary Care Provider] - 1-2 Weeks Home Medications: Ambulatory Orders Aripiprazole [Abilify] 10 mg PO DAILY 03/30/15 Atorvastatin Calcium [Lipitor] 40 mg PO BEDTIME 03/30/15 Esomeprazole Magnesium [Nexium] 20 mg PO DAILY 03/30/15 Aspirin (Buffered) 325 mg [Bufferin 325 mg] 1 ea PO DAILY 05/27/17 Linagliptin [Tradjenta] 5 mg PO DAILY 05/27/17 Magnesium Chloride [Slow-Mag] 71.5 mg PO DAILY 05/27/17 Metformin HCl [Metformin HCl ER] 1,000 mg PO BID 05/27/17 Potassium Chloride [K-Tab] 10 meq PO DAILY #10 tab 09/22/17 Meclizine HCl [Antivert] 25 mg PO TID PRN 01/02/19 Additional Instructions: Please contact your neurologist as soon as possible to arrange close follow up for ongoing evaluation.
--- NOTE | 2019-06-05 15:38 | RAD ---
EXAM DESCRIPTION: Chest,1 View CLINICAL HISTORY: 58 years Male Cough, seizure COMPARISON: 04/10/2019. FINDINGS: The cardiomediastinal silhouette appears unremarkable. No consolidating infiltrates or pleural effusions. No pneumothorax. IMPRESSION: No acute abnormality is identified. Electronically signed by: Duncan Gamble MD 06/05/2019 3:37 PM REVERBERATORY FURNACE SUPERVISOR
[2019-06-05 16:42] VITALS: BP 140/72; TEMP 97.9; O2SAT 95
== END 2019-06-05 16:35 | disposition home or self-care (01) ==
LOC: ER 14:41
DX: R40.4 Transient alteration of awareness (principal); R25.1 Tremor, unspecified; J06.9 Acute upper respiratory infection, unspecified; R56.9 Unspecified convulsions; E78.5 Hyperlipidemia, unspecified; I10 Essential (primary) hypertension; E11.9 Type 2 diabetes mellitus without complications; K21.9 Gastro-esophageal reflux disease without esophagitis; Z87.891 Personal history of nicotine dependence; Z79.82 Long term (current) use of aspirin; Z79.899 Other long term (current) drug therapy
CPT/HCPCS: 36415; 71045; 80053; 84484; 85025; 85610; 93005; J7030

== ENCOUNTER 2019-06-15 14:22 | Emergency (ER) | payer OTHER ==
[2019-06-15 14:48] VITALS: TEMP 97.9
--- NOTE | 2019-06-15 14:56 | ED.PDOC ---
History of Present Illness - General Chief Complaint: Neuro Symptoms/Deficits Stated Complaint: Poss. Seizure Time Seen by Provider: 06/15/19 14:46 Source: patient, RN notes reviewed, Vital Signs reviewed, EMS notes reviewed, family, EMS Exam Limitations: no limitations Additional Information: this is a 58-year-old gentleman who presents today with his via EMS. He was noted to have a seizure at home at approximately 1 states that she awakened with him being confused. She did not actually see seizure activity but noted him to be in his usual postictal state. He has been having seizures monthly. He has been having this type of activity for 3 years now. He is followed by Dr. Martinez, neurology. He has had a full workup including EEGs without any seizure focus noted. Does smoke THC. Has been taking his usual medications. He denies any pain anywhere. states that he did defecate on himself during this episode. She states that he has not been ill recently. He does have a nonproductive cough. Denies recent fever or chills or nausea and vomiting. - History of Present Illness Allergies/Adverse Reactions: Allergies NO KNOWN ALLERGY Allergy (Verified 06/15/19 14:49) Home Medications: Ambulatory Orders Aripiprazole [Abilify] 10 mg PO DAILY 03/30/15 Atorvastatin Calcium [Lipitor] 40 mg PO BEDTIME 03/30/15 Esomeprazole Magnesium [Nexium] 20 mg PO DAILY 03/30/15 Aspirin (Buffered) 325 mg [Bufferin 325 mg] 1 ea PO DAILY 05/27/17 Linagliptin [Tradjenta] 5 mg PO DAILY 05/27/17 Magnesium Chloride [Slow-Mag] 71.5 mg PO DAILY 05/27/17 Metformin HCl [Metformin HCl ER] 1,000 mg PO BID 05/27/17 Potassium Chloride [K-Tab] 10 meq PO DAILY #10 tab 09/22/17 Meclizine HCl [Antivert] 25 mg PO TID PRN 01/02/19 Review of Systems - Review of Systems Constitutional: States: no symptoms reported EENTM: States: no symptoms reported Respiratory: States: cough. Denies: orthopnea, short of breath, wheezing Cardiology: States: no symptoms reported Gastrointestinal/Abdominal: States: no symptoms reported Genitourinary: States: no symptoms reported Musculoskeletal: States: no symptoms reported Skin: States: no symptoms reported Neurological: States: seizure, other - brother after Cook. Denies: anxiety, headache, tingling, tremors, weakness Hematologic/Lymphatic: States: no symptoms reported All other Systems: Reviewed and Negative Past Medical History (General) - Patient Medical History Hx Seizures: Yes Hx Stroke: No Hx Dementia: No Hx Asthma: No Hx of COPD: No Hx Cardiac Disorders: Yes - [place] 2004 Hx Congestive Heart Failure: No Hx Pacemaker: No Hx Hypertension: Yes Hx Thyroid Disease: No Hx Diabetes: Yes Hx Gastroesophageal Reflux: Yes Hx Renal Disease: No Hx Cancer: No Hx of HIV: No Hx Hepatitis C: No Hx MRSA: No MRSA Source:: Wound Surgical History: tonsillectomy - Vaccination History Hx Tetanus, Diphtheria Vaccination: No Hx Influenza Vaccination: No Hx Pneumococcal Vaccination: No - Social History Hx Tobacco Use: Yes Hx Chewing Tobacco Use: Yes - Quit Hx Alcohol Use: Yes Hx Substance Use: Yes - Marijuana Hx Substance Use Treatment: No Hx Depression: Yes Hx Physical Abuse: No Hx Emotional Abuse: No Hx Suspected Abuse: No - Female History Patient is a Female of Child Bearing Age (10 -59 yrs old): No Patient : No Family Medical History - Family History Mother Family History: Unknown Living Status: Hx Family Diabetes: Yes - mom-brother Hx Family Cancer: Yes - dad-lung Hx Family;Other: SEIZURES-brother Physical Exam - Physical Exam General Appearance: Alert, No apparent distress Eye Exam: bilateral normal ENT Exam: normal ENT inspection, hearing grossly normal, TMs normal, pharynx normal Neck: non-tender, full range of motion, supple, normal inspection, trachea midline Respiratory: chest non-tender, no respiratory distress, no accessory muscle use, rhonchi - noted bilaterally Cardiovascular/Chest: normal peripheral pulses, regular rate, rhythm, no edema, no gallop, no JVD, no murmur Gastrointestinal/Abdominal: normal bowel sounds, non tender, soft, no organomegaly, no pulsatile mass Back Exam: normal inspection, no CVA tenderness, no vertebral tenderness Extremities Exam: non-tender, normal range of motion Mental Status: alert, oriented x 3, other - postictal [employer] head Exam: normal hearing, normal speech, PERRL Coordination/Gait: normal finger to nose, negative Romberg's sign Motor/Sensory: no motor deficit, no sensory deficit, no pronator drift Skin Exam: normal color, warm/dry Progress - Progress Progress: 06/15/19 15:04 MDM: Infection, mass, seizure disorder, electrolyte abnormality, dehydration, or. Patient will be evaluated with laboratory evaluation. We will go ahead and hydrate him as well. We will get a chest x-ray since he is having some abnormal lung sounds. 06/15/19 16:13 reports that he still is not to his baseline. Pt states he is fine. She is wanting him transferred to his neurologist. Dr. Rodriguez. We will obtain ct eval to make sure there is no acute changes that we are not aware of. 06/15/19 16:42 Called neurologists office. Obtain recording only. Will try back following ct evaluation and giving the patient more time to recover from his postictal state. Mar [address] head performed at this location. 06/15/19 17:04 06/15/19 17:[address] Yeung office and left message. CT evaluation reviewed. Pt is getting his abx infused. RN reports he is closer to baseline now. Also of note is the ct finding. Marked mucosal thickening left maxillary antrum with possible fracture anteriorly. There was no recent facial trauma the likelihood of fx is unlikely. 06/15/19 17:21 06/15/19 17:[address] Posada and Dr. Martinez called back. Suggestion was to follow up in clinic on Monday for reevaluation and possible admission to [facility] for EEG monitoring. 06/15/19 17:[address] Martinez's office had recommended, the patient's became irritated and asked that the patient be discharged immediately and that she would be taking him to [facility]. AMA form will be obtained. She acknowledges that we have spoken with the patient's neurologist and that their suggestions were being conveyed to she and her . She was also informed that he does have a pulmonary infection that requires further treatment. She reports that she is aware. 06/15/19 17:57 - Results/Orders Results/Orders: FINDINGS: Lungs: Mild bronchovascular thickening noted sparing the right upper lobe. No confluent consolidation. Pleural space: Unremarkable. No pneumothorax. Heart: Unremarkable. No cardiomegaly. Mediastinum: Unremarkable. Bones/joints: Unremarkable. IMPRESSION: Bronchitis. No pneumonia. Electronically signed by: Colleen Mason MD 06/15/2019 3:22 PM WORKFORCE ADVISOR Laboratory Tests 06/15/19 06/15/19 06/15/19 14:58 14:58 14:58 WBC 6.2 RBC 4.63 L Hgb 13.3 L Hct 39.8 L MCV 86.1 MCH 28.8 MCHC 33.4 RDW 13.4 Plt Count 222 MPV 8.3 Absolute Neuts (auto) 3.70 Absolute Lymphs (auto) 1.80 Absolute Monos (auto) 0.50 Absolute Eos (auto) 0.10 Absolute Basos (auto) 0.00 Neutrophils % 60.1 Lymphocytes % 28.6 Monocytes % 8.6 Eosinophils % 2.1 Basophils % 0.6 Sodium 139 Potassium 3.6 Chloride 105 Carbon Dioxide 29 Anion Gap 8.6 L BUN 9 Creatinine 0.63 BUN/Creatinine Ratio 14.3 Random Glucose 187 H Serum Osmolality 281.1 Lactic Acid Calcium 8.5 Total Bilirubin 0.6 AST 18 ALT 17 Alkaline Phosphatase 81 Serum Total Protein 6.8 Albumin 3.6 Globulin 3.2 Albumin/Globulin Ratio 1.1 Urine Color Urine Appearance Urine pH Ur Specific [place] Urine Protein Urine Glucose (UA) Urine Ketones Urine Blood Urine Nitrite Urine Bilirubin Urine Urobilinogen Ur Leukocyte Esterase Urine RBC Urine WBC Ur Epithelial Cells Urine Bacteria Urine Opiates Screen Negative Urine Barbiturates Negative Ur Phencyclidine Scrn Negative U Amphetamin/Meth Scrn Negative U Benzodiazepines Scrn Negative U Cocaine Metab Screen Negative U Cannabinoids Screen Positive H 06/15/19 06/15/19 14:58 15:20 WBC RBC Hgb Hct MCV MCH MCHC RDW Plt Count MPV Absolute Neuts (auto) Absolute Lymphs (auto) Absolute Monos (auto) Absolute Eos (auto) Absolute Basos (auto) Neutrophils % Lymphocytes % Monocytes % Eosinophils % Basophils % Sodium Potassium Chloride Carbon Dioxide Anion Gap BUN Creatinine BUN/Creatinine Ratio Random Glucose Serum Osmolality Lactic Acid 1.5 Calcium Total Bilirubin AST ALT Alkaline Phosphatase Serum Total Protein Albumin Globulin Albumin/Globulin Ratio Urine Color Yellow Urine Appearance Clear Urine pH 7.5 Ur Specific [place] 1.015 Urine Protein Negative Urine Glucose (UA) 500 H Urine Ketones Negative Urine Blood Negative Urine Nitrite Negative Urine Bilirubin Negative Urine Urobilinogen 0.2 Ur Leukocyte Esterase Negative Urine RBC 0 Urine WBC 0 Ur Epithelial Cells 0 Urine Bacteria 0 Urine Opiates Screen Urine Barbiturates Ur Phencyclidine Scrn U Amphetamin/Meth Scrn U Benzodiazepines Scrn U Cocaine Metab Screen U Cannabinoids Screen IMPRESSION: No acute intracranial abnormality. No evidence for hemorrhage, mass lesion, or large acute infarction. Marked mucosal thickening left maxillary antrum with possible fracture anteriorly. These findings are new when correlated with the prior study. Electronically signed by: Nabila Leos MD 06/15/2019 5:10 PM [facility] - EKG/XRAY/CT EKG: Sinus, nonspecific ST T wave Chg Comments: rate of 91, lad, baseline artifact noted, no acute ischemia Departure - Departure Clinical Impression: Seizure disorder, Acute bronchitis, Cannabis dependence Time of Disposition: 17:56 Disposition: Left Against Medical Advice Condition: Fair Departure Forms: ED Discharge - Pt. Copy, Patient Portal Self Enrollment Referrals: Gina Lazaro, [employer]APPER GRINDER [Primary Care Provider] - 1-2 Weeks Home Medications: Ambulatory Orders Aripiprazole [Abilify] 10 mg PO DAILY 03/30/15 Atorvastatin Calcium [Lipitor] 40 mg PO BEDTIME 03/30/15 Esomeprazole Magnesium [Nexium] 20 mg PO DAILY 03/30/15 Aspirin (Buffered) 325 mg [Bufferin 325 mg] 1 ea PO DAILY 05/27/17 Linagliptin [Tradjenta] 5 mg PO DAILY 05/27/17 Magnesium Chloride [Slow-Mag] 71.5 mg PO DAILY 05/27/17 Metformin HCl [Metformin HCl ER] 1,000 mg PO BID 05/27/17 Potassium Chloride [K-Tab] 10 meq PO DAILY #10 tab 09/22/17 Meclizine HCl [Antivert] 25 mg PO TID PRN 01/02/19
[2019-06-15] MEDS ORDERED: SODIUM CHLORIDE 0.9% 1000ML 1,000 ML IVS ONE (14:58)
--- NOTE | 2019-06-15 15:24 | RAD ---
EXAM: XR Chest, 1 View CLINICAL HISTORY: cough TECHNIQUE: Frontal view of the chest. COMPARISON: 06/05/2019. FINDINGS: Lungs: Mild bronchovascular thickening noted sparing the right upper lobe. No confluent consolidation. Pleural space: Unremarkable. No pneumothorax. Heart: Unremarkable. No cardiomegaly. Mediastinum: Unremarkable. Bones/joints: Unremarkable. IMPRESSION: Bronchitis. No pneumonia. Electronically signed by: Colleen Mason MD 06/15/2019 3:22 PM WASH BOX OPERATOR
[2019-06-15] MEDS ORDERED: AZITHROMYCIN IV 500 MG in SODIUM CHLORIDE 0.9% 250ML 250 ML IVPB ONE (16:15)
[2019-06-15] MEDS ORDERED: cefTRIAXone SODIUM 1 GM in SODIUM CHL 0.9% 50ML MIN-BAG+ 50 ML IVPB ONE (16:15)
[2019-06-15] MEDS ORDERED: cefTRIAXone SODIUM 1 GM VIAL ONE (16:53)
[2019-06-15] MEDS ORDERED: SODIUM CHL 0.9% 50ML MIN-BAG+ 50 ML IVPB ONE (16:53)
[2019-06-15 17:03] VITALS: O2SAT 96
--- NOTE | 2019-06-15 17:11 | CT ---
EXAM DESCRIPTION: Head CLINICAL HISTORY: 58 years Male ams COMPARISON: April 10, 2019. TECHNIQUE: Images were obtained in axial, sagittal, and coronal planes. This exam was performed according to our departmental dose-optimization program which includes use of Automated Exposure Control, adjustment of the mA and/or kV according to patient size and/or use of iterative reconstruction technique. FINDINGS: Ventricular system appears normal. No abnormal areas of increased or decreased attenuation are seen involving the brain parenchyma. No extra-axial fluid collections noted. No evidence for skull fracture. New marked mucosal thickening left maxillary antrum with suspected cortical disruption anteriorly. Symmetric aeration mastoid air cells bilaterally. IMPRESSION: No acute intracranial abnormality. No evidence for hemorrhage, mass lesion, or large acute infarction. Marked mucosal thickening left maxillary antrum with possible fracture anteriorly. These findings are new when correlated with the prior study. Electronically signed by: Nabila Leos MD 06/15/2019 5:10 PM [facility]
[2019-06-15] MEDS ORDERED: AZITHROMYCIN IV 500 MG VIAL IVPB ONE (17:23)
[2019-06-15] MEDS ORDERED: SODIUM CHLORIDE 0.9% 250ML 250 ML ONE (17:23)
[2019-06-15 18:11] VITALS: BP 174/95
== END 2019-06-15 17:45 | disposition left against medical advice (07) ==
LOC: ER 14:22
DX: G40.909 Epilepsy, unspecified, not intractable, without status epilepticus (principal); J20.9 Acute bronchitis, unspecified; F12.20 Cannabis dependence, uncomplicated; F32.9 Major depressive disorder, single episode, unspecified; I25.2 Old myocardial infarction; I10 Essential (primary) hypertension; E11.9 Type 2 diabetes mellitus without complications; K21.9 Gastro-esophageal reflux disease without esophagitis; Z53.29 Procedure and treatment not carried out because of patient's decision for other reasons; Z79.899 Other long term (current) drug therapy; Z79.82 Long term (current) use of aspirin; Z87.891 Personal history of nicotine dependence
CPT/HCPCS: 36415; 70450; 71045; 80053; 80307; 81001; 83605; 85025; 93005; J0456; J0696; J7050

== ENCOUNTER → 2019-07-11 | Outpatient (CLI) | payer OTHER | LOC: YCFC.O 08:26 | PROVIDERS: ATTEND Nurse Practitioner | DX: E78.5 Hyperlipidemia, unspecified (principal); I10 Essential (primary) hypertension; E11.65 Type 2 diabetes mellitus with hyperglycemia; R53.83 Other fatigue; Z51.81 Encounter for therapeutic drug level monitoring ==

== ENCOUNTER → 2019-08-29 | Outpatient (CLI) | payer OTHER | LOC: SL 19:14 | PROVIDERS: ATTEND Nurse Practitioner | DX: R06.83 Snoring (principal) ==

== ENCOUNTER → 2020-01-23 | Outpatient (CLI) | payer OTHER ==
--- NOTE | 2020-01-23 23:56 | RAD ---
EXAM DESCRIPTION: Abdomen Series CLINICAL HISTORY: 59 years Male, ABDOMINAL PAIN COMPARISON: Chest radiograph 06/15/2019. CT abdomen and pelvis 01/20/2011. TECHNIQUE: 4 view radiographs of the chest and abdomen. IMPRESSION: Lungs are clear. Normal heart size. No pleural effusion or pneumothorax. Partially calcified aorta. Nondilated bowel gas pattern. Mild colonic stool. No pathologic calcification overlying the renal shadows or expected course of the ureters. Enlarged liver. Lumbar spondylosis. Phleboliths in the right and left hemipelvis. Electronically signed by: Bhargav Crawford MD 01/23/2020 11:54 PM CDT
--- NOTE | 2020-01-24 12:59 | CT ---
Procedure: CT LUNG SCREENING Exam Date: 23 January 2020. Ordering Provider: Tatiana Alston Clinical Indication: PERSONAL HISTORY OF TOBACCO DEPENDENCE . Cigarette smoker. 20 pack years. This patient meets eligibility criteria for low-dose CT lung cancer screening. Comparison: Chest x-ray June 2019. Technique: Using a multislice scanner, sequential helical axial imaging was obtained in the thorax, 2.5 mm thickness, 2.5 mm separation, from the level of the thoracic inlet through the lung bases without IV contrast. A low dose protocol was utilized for BMI less than 30: BMI: 28.6. CTDI: 1.76 mGy. 120. kVp. 45 mA. DLP 71 mGy-cm. 2D sagittal and coronal reconstructed images, 6.0 mm thickness, were obtained. This exam was performed according to our departmental dose optimization program which includes use of automated exposure control, adjustment of the mA and/or kV according to patient size and/or use of iterative reconstruction technique. Nodule measurements under 10 mm are given as mean value of 3 axes diameters. FINDINGS: Lungs and large airways: Small bilateral blebs in the upper lopez of the upper lobes centrilobular distribution. No abnormal nodules and no masses. No focal infiltrates. Minimal bilateral pleural parenchymal scarring lower lobes. Pleura and space: Negative. Mediastinum and antonio: evaluation limited by low dose technique and lack of IV contrast. No enlarged lymph nodes or dominant soft tissue mass. Heart and great vessels: Atherosclerotic calcifications in the brachiocephalic vessels and aortic arch. Chest wall, lower neck, axillae: Evaluation also limited by same factors as described above. Normal sized lymph nodes. Upper abdomen: Evaluation limited by low-dose technique. Moderate prominence of the left adrenal gland with density +2 to - 10, consistent with a adrenal adenoma. Gallbladder visualized with no free fluid or free air in the included peritoneal space. Osseous structures: Evaluation limited by low dose MIP technique. Minimal spondylosis in the thoracic spine. IMPRESSION: 1. Early emphysematous changes in the upper lobes. No abnormal nodules and no mass. No focal infiltrate.. [facility] Best Practice Recommendations: please see below for Lung RADS category and FOLLOW-UP.* *Lung RADS category Category 1 - No nodule or definitely benign nodules (probability of malignancy less than 1%). Follow-up: Continue annual screening with Low Dose Chest CT in 12 months. Electronically signed by: Boyd Berger MD 01/24/2020 12:58 PM CDT
== END ==
LOC: LAB.O 10:45
PROVIDERS: ATTEND Nurse Practitioner
DX: Z87.891 Personal history of nicotine dependence (principal); R16.0 Hepatomegaly, not elsewhere classified; M47.896 Other spondylosis, lumbar region; I87.8 Other specified disorders of veins; I70.0 Atherosclerosis of aorta; I10 Essential (primary) hypertension; R10.9 Unspecified abdominal pain; E11.65 Type 2 diabetes mellitus with hyperglycemia
CPT/HCPCS: 36415; 74019; 80053; 81001; 82043; 82570; 83036; 85025; G0297

== ENCOUNTER → 2020-04-30 | Outpatient (CLI) | payer OTHER ==
--- NOTE | 2020-04-30 12:47 | RAD ---
EXAM DESCRIPTION: Chest,2 Views CLINICAL HISTORY: Abnormal breath sounds COMPARISON: March 24, 2020 TECHNIQUE: Two-view radiograph of the chest FINDINGS: Cardiac silhouette shows normal heart size. Pulmonary vascularity is within normal limits. Lungs show no confluent infiltrates. Costophrenic angles are sharp. No pneumothorax. No acute osseous abnormality. IMPRESSION: No acute cardiopulmonary process. Electronically signed by: Dax Dunne MD 04/30/2020 12:45 PM [facility]
== END ==
LOC: YCFC.O 12:02
PROVIDERS: ATTEND Nurse Practitioner
DX: Z20.828 Contact with and (suspected) exposure to other viral communicable diseases (principal); I10 Essential (primary) hypertension; E11.65 Type 2 diabetes mellitus with hyperglycemia; R09.89 Other specified symptoms and signs involving the circulatory and respiratory systems